=== PATIENT | female | born 1960 | race African-American/Black ===

== ENCOUNTER 2017-07-28 16:13 | Inpatient (IN) | payer OTHER ==
[2017-07-28 17:08] LABS: #Basophils 0.1 thou/uL (0.0-0.2); #Eosinphils 0.1 thou/uL (0.0-0.7); #Monocytes 0.4 thou/uL (0.11-0.59); #Neutrophils 4.3 thou/uL (1.40-6.50); %Basophils 0.9 % (0.0-1.0); %Eosinophils 0.9 % (0.0-10.0); %Monocytes 4.5 % (0.0-10.0); Mean Platelet Volume 9.6 fL (7.4-10.4); Red Blood Cell (RBC) Count 5.63 mill/uL (4.20-5.40); White Blood Cell (WBC) Count 7.8 thou/uL (4.8-10.8)
[2017-07-28 17:20] LABS: PTT 29.3 SEC (22.9-36.1); Prothrombin Time 12.9 SEC (12.0-14.7)
--- NOTE | 2017-07-28 17:21 | ULT ---
VENOUS DOPPLER ULTRASOUND OF THE RIGHT LOWER EXTREMITY: Date: 07/28/17 HISTORY: Shortness of breath, right calf pain. TECHNIQUE: Kc scale ultrasound with color flow and spectral Doppler imaging of the deep venous systems of the right lower extremity was performed. FINDINGS: There is good flow, compression, and augmentation noted in the right common femoral, femoral, deep f emoral, popliteal, posterior tibial, and greater saphenous veins. IMPRESSION: No evidence of deep venous thrombosis in the right lower extremity. POS: [facility]
[2017-07-28 17:32] LABS: ALT (SGPT) 15 U/L (8-55); AST (SGOT) 14 U/L (5-34); Alkaline Phosphatase 68 U/L (40-150); Anion Gap 10 mmol/L (10-20); BUN (Urea Nitrogen) 12 mg/dL (9.8-20.1); Bilirubin, Total 0.7 mg/dL (0.2-1.2); Calc. Creatinine Clearance 0 mL/min (70-130); Calcium 9.7 mg/dL (7.8-10.44); Carbon Dioxide 31 mmol/L (22-29); Chloride 104 mmol/L (98-107); Estimated GFR-MDRD Greater than 90; Globulin 3.8 g/dL (2.4-3.5); Protein, Total 7.6 g/dL (6.0-8.3)
[2017-07-28 17:35] LABS: Lactic Acid - Sepsis 1.5 mmol/L (0.5-2.2)
[2017-07-28 17:36] LABS: Troponin I Less than 0.010 ng/mL (< 0.028)
--- NOTE | 2017-07-28 17:42 | RAD ---
AP VIEW CHEST: 07/28/17 HISTORY: Peripheral vascular disease. Congestive heart failure. Possible right lower extremity DVT. AP view chest is obtained on 07/28/17. COMPARISON: Comparison made to previous exam from 09/13/16. AP view chest demonstrates the lungs to be well aerated. No evidence of active intrathoracic disease seen. No evidence of effusions, pneumonia or pneumothorax seen. IMPRESSION: Unremarkable AP view chest. POS: [facility]
[2017-07-28] MEDS ORDERED: Enoxaparin Sodium 40 MG/0.4 ML SYRINGE ONE (18:47)
[2017-07-28] MEDS ORDERED: Enoxaparin Sodium 100 MG/ML SYRINGE ONE (18:47)
[2017-07-28] MEDS ORDERED: Ondansetron ODT 4 MG TAB SL PRN (20:29)
[2017-07-28] MEDS ORDERED: Ondansetron HCl/PF 4 MG/2 ML Vial IVP PRN (20:29)
[2017-07-28] MEDS ORDERED: Acetaminophen 325 MG TAB PO PRN (20:29)
[2017-07-28] MEDS ORDERED: Lactated Ringer's 1,000 ML IV SCH (20:30)
[2017-07-28] MEDS ORDERED: Dextrose 5% in Water 1,000 ML IV PRN (21:49)
[2017-07-28] MEDS ORDERED: Dextrose 50% Abboject 50 ML SYRINGE SLOW IVP PRN (21:49)
[2017-07-28 21:51] VITALS: BMI 52.2
[2017-07-28] MEDS ORDERED: HYDROcodone/Acetaminophen 5/325 mg Tablet PO PRN (21:58)
[2017-07-28] MEDS ORDERED: DICLOFENAC SODIUM TOP PRN (21:58)
[2017-07-28] MEDS: HYDROcodone/Acetaminophen 5/325 mg Tablet PO PRN (22:23)
[2017-07-28 22:55] LABS: Troponin I Less than 0.010 ng/mL (< 0.028)
[2017-07-29 01:42] LABS: Troponin I Less than 0.010 ng/mL (< 0.028)
[2017-07-29 01:50] LABS: Oxyhemoglobin 85.6 % (94.0-97.0)
[2017-07-29 01:51] LABS: Modified Allen's Test POSITIVE; Sodium 143 mmol/L (135-148); Vent NO
[2017-07-29 01:52] LABS: Mode Nasal Cannula
[2017-07-29 05:35] LABS: #Eosinphils 0.1 thou/uL (0.0-0.7); #Lymphocytes 3.3 thou/uL (1.20-3.40); #Monocytes 0.4 thou/uL (0.11-0.59); #Neutrophils 3.2 thou/uL (1.40-6.50); %Basophils 0.2 % (0.0-1.0); %Eosinophils 1.6 % (0.0-10.0); %Lymphocytes 46.8 % (21.0-51.0); %Monocytes 5.7 % (0.0-10.0); Hematocrit 38.7 % (36.0-47.0); Mean Platelet Volume 9.1 fL (7.4-10.4); Red Blood Cell (RBC) Count 5.14 mill/uL (4.20-5.40)
[2017-07-29 05:52] LABS: Anion Gap 10 mmol/L (10-20); BUN (Urea Nitrogen) 13 mg/dL (9.8-20.1); Calc. Creatinine Clearance 197 mL/min (70-130); Calcium 8.9 mg/dL (7.8-10.44); Carbon Dioxide 27 mmol/L (22-29); Chloride 106 mmol/L (98-107); Estimated GFR-MDRD Greater than 90
[2017-07-29] MEDS: HYDROcodone/Acetaminophen 5/325 mg Tablet PO PRN ×3 (06:23→21:33)
--- NOTE | 2017-07-29 07:02 | ADD-HP ---
DATE OF ADMISSION: 07/28/2017 ATTENDING: Dr. Kareen Manzanares. RESIDENT: Dr. Chadd Soriano. Dr. Soriano's H and P reviewed and the case discussed. Pertinent portions of the history and physica l were repeated by myself. I agree with the assessment and plan with the following addendum: Ms. Felix is a 57-year-old female with a significant past medical history includ ing severe diffuse osteoarthritis, morbid obesity, insulin-dependent type 2 diabetes, hypertension, hyperlipidemia, and obstructive sleep apnea, who presented today with severe left leg pain and short ness of breath. She uses 5 liters of O2 at home chronically and is currently not hypoxic on her billy e dose. She was admitted to rule out DVT and PE versus acute coronary syndrome. She is currently a t Oncology, she notes that her leg continues to hurt, but she does not note any more chest pain and shortness of breath and states that she feels markedly improved. We will transfer her to telemetry given her differential diagnosis. She has had a negative cardiac enzymes x1 and an EKG is unremarka ble. Her vital signs are stable. Ultrasound of her leg did not show a DVT. There is still some co ncern for PE given her mildly elevated D-dimer. We are unable to do a CT scan given her anaphylacti c reaction to contrast allergy, so we will perform a VQ scan in the morning. Her Wells score is 3, giving her a moderate risk of PE with a 3% incidence of PE in patients with similar presentation. S he currently appears stable with no issues. We will hold off on anticoagulation until VQ scan was p erformed.
--- NOTE | 2017-07-29 07:38 | PDOC.FM ---
- Subjective Subjective: Patient doing well this morning with no adverse events overnight. She denies shortness of breath at rest. She still has some dyspnea with exertion. - Objective MAR Reviewed: Yes Vital Signs & Weight: Vital Signs (12 hours) Temp Pulse Resp BP Pulse Ox 07/29/17 03:09 98.6 F 85 20 128/59 L 100 07/29/17 00:05 100 07/28/17 23:55 98.9 F 94 22 H 118/56 L 100 07/28/17 22:52 98.8 F 85 16 144/65 H 98 07/28/17 22:46 98.6 F 88 18 94 L 07/28/17 21:49 100 07/28/17 19:45 98.6 F 88 18 140/80 94 L Weight Weight 137.949 kg Result Diagrams: 07/29/17 05:11 07/29/17 05:11 <Hannah Tuttle - Last Filed: 07/29/17 10:34> - Objective Vital Signs & Weight: Vital Signs (12 hours) Temp Pulse Resp BP Pulse Ox 07/29/17 12:30 97 F L 91 15 140/65 98 07/29/17 12:00 98.4 F 82 22 H 124/58 L 97 Weight Weight 137.949 kg Result Diagrams: 07/29/17 05:11 07/29/17 05:11 <Roddy Moy - Last Filed: 07/29/17 20:22> Phys Exam - Physical Examination Constitutional: NAD Respiratory: no wheezing Cardiovascular: RRR Musculoskeletal: no edema Psychiatric: A&O x 3 Skin: no rash <Hannah Tuttle - Last Filed: 07/29/17 10:34> Dx/Plan (1) Exertional dyspnea Code(s): R06.09 - OTHER FORMS OF DYSPNEA Status: Acute Plan: Pt sent from clinic due to concern for Pulmonary embolism. V/Q scan will be performed to rule out presence of VTE. RLE doppler negative. D-dimer 0.45 If V/Q shows low probability, no further workup for VTE will be warranted. Will consider stress test if V/Q was negative. (2) HTN (hypertension) Code(s): I10 - ESSENTIAL (PRIMARY) HYPERTENSION Status: Acute Plan: BP stable. continue current regimen. (3) DM2 (diabetes mellitus, type 2) Status: Chronic Plan: Fasting BS elevated this morning. Will add sliding scale insulin. Continue to monitor AC/HS accuchecks and consider adjusting pt's home regimen based on insulin requirements. (4) Osteoarthritis Code(s): M19.90 - UNSPECIFIED OSTEOARTHRITIS, UNSPECIFIED SITE Status: Chronic Plan: Continue home pain regimen. (5) Obstructive sleep apnea Code(s): G47.33 - OBSTRUCTIVE SLEEP APNEA (ADULT) (PEDIATRIC) Status: Acute Plan: CPAP at night. <Hannah Tuttle - Last Filed: 07/29/17 10:34> Attending Addendum - Attending Addendum I personally evaluated the patient and discussed the management with Dr. Tuttle this morning. I agree with the History, Examination, Assessment and Plan documented above with any addition or exceptions noted below. VQ was pending this morning. Cardiac workup underway as well. <Roddy Moy - Last Filed: 07/29/17 20:22>
[2017-07-29] MEDS: Aspirin 325 MG TAB PO SCH (08:56)
[2017-07-29] MEDS: Loratadine 10 MG TAB PO SCH (08:57)
[2017-07-29] MEDS: tiZANidine HCl 4 MG TAB PO SCH ×3 (08:57→21:25)
[2017-07-29] MEDS ORDERED: Enoxaparin Sodium 100 MG/ML SYRINGE SC SCH (09:00)
[2017-07-29] MEDS ORDERED: FLU VACC QS2017-18 36 mo. & older 0.5 ML SYRINGE IM ONE (09:00)
--- NOTE | 2017-07-29 10:13 | HP-2 ---
DATE OF ADMISSION: 07/28/2017 LOCATION: [facility]. DATE OF SERVICE: 07/28/2017 CODE STATUS: FULL. PRIMARY CARE PHYSICIAN: [facility]. ATTENDING PHYSICIAN: Kareen Manzanares DO RESIDENT PHYSICIAN: Chadd Soriano DO CHIEF COMPLAINT: Right lower extremity pain, shortness of breath, rapid heart rate/palpitations. HISTORY OF PRESENT ILLNESS: Patient is a 57-year-old female with past medical history of hypertension; hyperlipidemia; morbid obesity; obstructive sleep apnea , on CPAP; and prior right lower extremity DVT, who presented to ED from clinic for concern of increasing dyspnea on exertion over the last 3 days, palpitations and increasing pain in the right lower extremity. The patient describes the pain is radiating from groin and medial aspect of the right knee. Denies claudication, redness, warmth, and swelling outside of her baseline. Right lower extremity pain has been present for months and she received several joint injections in bilateral knees and hips for her osteoarthritis. The lower extremity pain was reproducible and worsened with internal and external rotation of the hip. Patient denies shortness of breath at rest, chest pain, pleuritic chest pain, or diaphoresis. In the ER, the patient was given aspirin and Lovenox. PAST MEDICAL HISTORY: Morbid obesity; type 2 diabetes; hyperlipidemia; hypertension; prior history of DVT; obstructive sleep apnea, on CPAP; and osteoarthritis. PAST SURGICAL HISTORY: Hysterectomy, cholecystectomy, and partial bowel resection. ALLERGIES: 1. ZOFRAN. 2. MORPHINE. 3. IBUPROFEN. 4. BACTRIM with angioedema as reaction. 5. IODINE. MEDICATIONS: 1. [place] 5/325. 2. Diclofenac gel. 3. Simvastatin 40 mg daily. 4. Cetirizine 10 mg daily. 5. Humulin 70/30, 17 units every morning, 22 units every night. 6. Protonix 40 mg daily. 7. Benazepril 20 mg daily. 8. Metformin 1000 mg b.i.d. 9. Glipizide 10 mg b.i.d. FAMILY HISTORY: Positive for maternal breast cancer, paternal colon cancer, paternal hypertension as well as paternal AK. SOCIAL HISTORY: The patient is 2-pack per day smoker with a 26-atth-spzj history and quit smoking cigarettes approximately 10 years ago; however, has been chewing tobacco since then approximately 2 cans per week. Patient is a social drinker. Denies drug use. REVIEW OF SYSTEMS: General: Patient complains of fever and fatigue. Denies chills, weight changes and appetite changes, and night sweats. Eye: The patient denies vision changes. ENT: The patient denies nasal congestion, rhinorrhea, or sore throat. Respiratory: The patient complains of shortness of breath. Denies cough or congestion. Cardiovascular: The patient complains of edema and palpitations, dyspnea on exertion. Denies chest pain. Gastrointestinal: The patient denies nausea, vomiting, diarrhea, or constipation. Musculoskeletal: The patient complains of pain and arthritis. Denies tenderness to palpation. PHYSICAL EXAMINATION: VITAL SIGNS: Patient's blood pressure is 130/77, pulse 91, respirations 16, T- max 98.5, pulse ox 95% on room air. Patient's current weight is 139 kilograms. GENERAL: The patient is alert and oriented, in no acute distress, morbidly obese, appropriately interactive. HEENT: Pupils equal, round, react to light with accommodation. Extraocular muscles are intact. Conjunctivae within normal limits. CARDIAC: Regular rate and rhythm. No murmurs, rubs, or gallops. Radial pulses 2+, pedal pulses 2+. RESPIRATORY: Normal effort. Clear to auscultation bilaterally. No retractions. No paradoxical breathing. SKIN: Warm and dry. No cyanosis. ABDOMEN: Soft, nontender. Normoactive bowel sounds in all 4 quadrants. No masses or distention. EXTREMITIES: No clubbing, no cyanosis. Patient had bilateral lower extremity, 2+ pitting edema. MUSCULOSKELETAL: Structures are within normal limits. Tone within normal limits. NEUROLOGIC: No focal deficits. Sensation within normal limits. GCS 15. LABORATORY DATA: White blood cell count 7.8, hemoglobin 13.1, hematocrit 43, platelets 217. Sodium 141, potassium 3.8, chloride 104, bicarbonate 31, BUN 12 , creatinine 0.72, glucose 105, calcium 9.7, total protein 7.6, albumin 3.8, AST 14, ALT 15, alkaline phosphatase 68, total bilirubin 0.7, PT 12.9, PTT 29.3 , INR 1.0. D-dimer 0.45, troponin less than 0.010. CK 73, CK-MB 0.8. BNP less than 10. IMAGING: EKG showed normal sinus rhythm, no ST changes or T-wave changes. Chest x-ray was unremarkable. Right lower extremity venous Doppler showed no evidence of DVT in the right lower extremity. ASSESSMENT AND PLAN: 1. Exertional shortness of breath secondary to pulmonary embolism versus pickwickian versus chronic hypoxic respiratory failure. D-dimer 0.45, Well's score 4.5, we will order ABG, VQ scan and patient will be started on therapeutic Lovenox at 1 mg/kg b.i.d. Check troponins with cardiac enzymes x3. The patient will be admitted for observation to telemetry. 2. Hypertension. The patient will be restarted on home medications. 3. Type 2 diabetes. The patient will be continued on home medications. Accu- Cheks q.a.c. and at bedtime. 4. Osteoarthritis. Patient will be continued on home medications. 5. Obstructive sleep apnea. Patient will be continued on CPAP at bedtime and will maintain sats above 88%. 6. Hyperlipidemia. We will resume home medications. DISPOSITION AND LENGTH OF STAY: Patient is stable. Expected length of stay greater than or equal to 3 days. Symptomatic medication will be provided. History and physical exam as well as management were discussed with Dr. Kareen Manzanares, who agrees with the above, unless otherwise documented in her addendum. MAXX
--- NOTE | 2017-07-29 10:31 | PQF ---
MARBELLA RUIZ JESSICA C *r [id number] CLINICAL DOCUMENTATION IMPROVEMENT CLARIFICATION FORM: ICD-10 Updated PLEASE DO AN ADDENDUM TO THE PROGRESS NOTE WITH ANY DOCUMENTATION UPDATES OR ADDITIONS AND CARRY THROUGH TO DC SUMMARY. THANK YOU. DATE: 07-29-17 ATTN: DR. ALAN ZAMORA / DR. ANALY KILPATRICK ([employer]) Please exercise your independent, professional judgment in responding to the clarification form. Clinical indicators are provided on the bottom of this form for your review Please check appropriate box(s): [ ] Chronic Respiratory Failure only [ ] with Hypoxia [ ] with Hypercapnia [ ] Hypoxia [ ] Other diagnosis [ ] Unable to determine In addition, please specify: Present on Admission (POA): [ ] Yes [ ] No [ ] Unable to determine For continuity of documentation, please document condition throughout progress notes and discharge summary. Thank You. CLINICAL INDICATORS - SIGNS / SYMPTOMS / LABS H&P ADD: USES 5 LITERS OF 02 AT HOME CHRONICALLY AND IS CURRENTLY NOT HYPOXIC ON HER HOME DOSE 07-28 @ 1945 O2 SAT 94% ON 3LNC 07-29 ARTERIAL BLOOD GAS: ABG pO2 53.7 RISK FACTORS H&P ADD: History of home O2 use HX OF Tobacco abuse CONCERN FOR PE GIVEN ELEVATED D-DIMER TREATMENTS: CPOE: TELE MONITORING NM LUNG VENT &PERFUSION OXYGEN 3LNC THANK YOU, EMMY (This form is maintained as a part of the permanent medical record) 2014 [employer]. All Rights Reserved Emmy Fair RN, BS [email or web address] Cell [facility]
[2017-07-29] MEDS ORDERED: HumaLOG 300 UNITS/3 ML VIAL SC PRN (10:42)
[2017-07-29] MEDS: Enoxaparin Sodium 40 MG/0.4 ML SYRINGE SC SCH ×2 (11:13→21:27)
[2017-07-29] MEDS: metFORMIN 500 MG TAB PO SCH ×2 (11:38→17:33)
[2017-07-29] MEDS: Insulin NPH/Reg Insulin Hm 300 UNITS/3 ML VIAL SC SCH ×2 (12:04→17:33)
--- NOTE | 2017-07-29 13:14 | NM ---
VQ SCAN: Date: 07/29/17 HISTORY: Shortness of breath and tachycardia. TECHNIQUE: A ventilation perfusion scan was performed using 16 mCi Xenon-133 by inhalation for the ventilation study followed by the intravenous administration of 6 mCi technetium-99m MAA for the perfusion scan. FINDINGS: Correlation is made with the chest radiograph from previous evening. Homogeneous tracer distribution is seen on the lungs on the ventilation perfusion scans without mism atched defects. IMPRESSION: Normal exam. POS: [facility]
[2017-07-29] MEDS: Atorvastatin Calcium 20 MG TAB PO SCH (21:25)
--- NOTE | 2017-07-30 06:31 | PDOC.FM ---
- Subjective Subjective: Pt doing well this morning. She still is experiencing exertional dyspnea. No adverse events overnight. - Objective MAR Reviewed: Yes Vital Signs & Weight: Vital Signs (12 hours) Temp Pulse Resp BP Pulse Ox 07/30/17 04:00 97 07/30/17 03:59 98.4 F 92 16 125/58 L 97 07/30/17 00:00 95 07/29/17 23:47 98.4 F 83 18 119/55 L 98 07/29/17 20:00 97.6 F 80 20 130/59 L 97 Weight Weight 138.845 kg I&O: 07/28/17 07/29/17 07/30/17 06:59 06:59 06:59 Intake Total 720 Output Total 680 Balance 40 Result Diagrams: 07/29/17 05:11 07/29/17 05:11 <Hannah Tuttle - Last Filed: 07/30/17 09:41> - Objective Vital Signs & Weight: Vital Signs (12 hours) Temp Pulse Resp BP BP Pulse Ox 07/30/17 07:58 122/70 07/30/17 07:56 98.7 F 80 18 122/70 100 07/30/17 04:00 97 07/30/17 03:59 98.4 F 92 16 125/58 L 97 07/30/17 00:00 95 07/29/17 23:47 98.4 F 83 18 119/55 L 98 Weight Weight 138.845 kg I&O: 07/29/17 07/30/17 07/31/17 06:59 06:59 06:59 Intake Total 720 Output Total 680 Balance 40 Result Diagrams: 07/29/17 05:11 07/29/17 05:11 <Anna Melendez - Last Filed: 07/30/17 10:13> Phys Exam - Physical Examination Constitutional: NAD Respiratory: clear to auscultation bilateral Cardiovascular: RRR Gastrointestinal: soft, non-tender Psychiatric: A&O x 3 <Hannah Tuttle - Last Filed: 07/30/17 09:41> Dx/Plan (1) Exertional dyspnea Code(s): R06.09 - OTHER FORMS OF DYSPNEA Status: Chronic Plan: Likely secondary to pt body habitus. VTE workup negative. Echo shows normal EF, no structural abnormalities. Will rule out ACS with Stress test and dc if normal. (2) HTN (hypertension) Code(s): I10 - ESSENTIAL (PRIMARY) HYPERTENSION Status: Acute Plan: BP stable. continue current regimen. (3) DM2 (diabetes mellitus, type 2) Status: Chronic Plan: Fasting BS wnl this am. Continue current regimen. (4) Osteoarthritis Code(s): M19.90 - UNSPECIFIED OSTEOARTHRITIS, UNSPECIFIED SITE Status: Chronic Plan: Continue home pain regimen. (5) Obstructive sleep apnea Code(s): G47.33 - OBSTRUCTIVE SLEEP APNEA (ADULT) (PEDIATRIC) Status: Acute Plan: CPAP at night. <Hannah Tuttle - Last Filed: 07/30/17 09:41> Attending Addendum - Attending Addendum I personally evaluated the patient and discussed the management with Dr. Tuttle. I agree with the History, Examination, Assessment and Plan documented above with any addition or exceptions noted below. The patient is feeling better this morning. She notes mild dyspnea when ambulating to the restroom. This may be 2/2 deconditioning. She will have a stress test this morning and if negative will likely be discharged. <Anna Melendez - Last Filed: 07/30/17 10:13>
[2017-07-30] MEDS: tiZANidine HCl 4 MG TAB PO SCH ×4 (07:58→21:24)
[2017-07-30] MEDS: Enoxaparin Sodium 40 MG/0.4 ML SYRINGE SC SCH ×2 (07:59→21:25)
[2017-07-30] MEDS: Loratadine 10 MG TAB PO SCH (07:59)
[2017-07-30] MEDS: metFORMIN 500 MG TAB PO SCH ×2 (11:54→18:16)
[2017-07-30] MEDS: Aspirin 325 MG TAB PO SCH (11:55)
[2017-07-30] MEDS: Insulin NPH/Reg Insulin Hm 300 UNITS/3 ML VIAL SC SCH ×2 (11:56→18:17)
[2017-07-30] MEDS: HYDROcodone/Acetaminophen 5/325 mg Tablet PO PRN ×2 (12:03→19:24)
[2017-07-30] MEDS ORDERED: Docusate 100 MG CAP PO PRN (17:22)
[2017-07-30] MEDS ORDERED: Polyethylene Glycol 3350 17 GM Packet PO PRN (17:22)
[2017-07-30] MEDS: Atorvastatin Calcium 20 MG TAB PO SCH (21:24)
--- NOTE | 2017-07-31 06:06 | PDOC.FM ---
- Subjective Subjective: Pt doing well this morning. She states that her exertional dyspnea has improved compared to admission. - Objective MAR Reviewed: Yes Vital Signs & Weight: Vital Signs (12 hours) Temp Pulse Resp BP BP Pulse Ox 07/31/17 04:00 97.9 F 88 20 132/60 98 07/31/17 00:00 97.8 F 89 20 148/65 H 96 07/30/17 20:03 98.2 F 85 18 112/75 96 07/30/17 20:00 98.2 F 85 18 96 Weight Weight 140.16 kg I&O: 07/29/17 07/30/17 07/31/17 06:59 06:59 06:59 Intake Total 720 680 Output Total 680 820 Balance 40 -140 Result Diagrams: 07/29/17 05:11 07/31/17 06:14 <Hannah Tuttle - Last Filed: 07/31/17 09:03> - Objective Vital Signs & Weight: Vital Signs (12 hours) Temp Pulse Resp BP Pulse Ox 07/31/17 07:45 98.3 F 95 16 119/58 L 96 07/31/17 04:00 97.9 F 88 20 132/60 98 07/31/17 00:00 97.8 F 89 20 148/65 H 96 Weight Weight 140.16 kg I&O: 07/30/17 07/31/17 08/01/17 06:59 06:59 06:59 Intake Total 720 680 Output Total 680 820 200 Balance 40 -140 -200 Result Diagrams: 07/29/17 05:11 07/31/17 06:14 <Anna Melendez - Last Filed: 07/31/17 09:21> Phys Exam - Physical Examination Respiratory: clear to auscultation bilateral Cardiovascular: RRR Gastrointestinal: soft, non-tender Musculoskeletal: no edema Psychiatric: A&O x 3 <Hannah Tuttle - Last Filed: 07/31/17 09:03> Dx/Plan (1) Exertional dyspnea Code(s): R06.09 - OTHER FORMS OF DYSPNEA Status: Chronic Plan: Likely secondary to pt body habitus. VTE workup negative. Stress test postponed until this am due to recent dye administration. (2) HTN (hypertension) Code(s): I10 - ESSENTIAL (PRIMARY) HYPERTENSION Status: Chronic Plan: BP stable. continue current regimen. (3) DM2 (diabetes mellitus, type 2) Status: Chronic Plan: Fasting blood sugars. and postprandial blood sugars wnl this am. Continue current regimen. (4) Osteoarthritis Code(s): M19.90 - UNSPECIFIED OSTEOARTHRITIS, UNSPECIFIED SITE Status: Chronic Plan: Continue home pain regimen. (5) Obstructive sleep apnea Code(s): G47.33 - OBSTRUCTIVE SLEEP APNEA (ADULT) (PEDIATRIC) Status: Acute Plan: CPAP at night. - Plan Plan: Disposition: stable. d/c today if stress test is normal. <Hannah Tuttle - Last Filed: 07/31/17 09:03> Attending Addendum - Attending Addendum I personally evaluated the patient and discussed the management with Dr. Tuttle. I agree with the History, Examination, Assessment and Plan documented above with any addition or exceptions noted below. The patient was unable to get stress test yesterday due to contrast. will have stress test today and if negative will discharge. Patient's dyspnea is improved. <Anna Melendez - Last Filed: 07/31/17 09:21>
[2017-07-31 06:38] LABS: Calc. Creatinine Clearance 191 mL/min (70-130); Estimated GFR-MDRD Greater than 90
[2017-07-31] MEDS: Aspirin 325 MG TAB PO SCH (11:02)
[2017-07-31] MEDS: metFORMIN 500 MG TAB PO SCH ×2 (11:03→16:28)
[2017-07-31] MEDS: Loratadine 10 MG TAB PO SCH (11:03)
[2017-07-31] MEDS: Enoxaparin Sodium 40 MG/0.4 ML SYRINGE SC SCH (11:04)
[2017-07-31] MEDS: tiZANidine HCl 4 MG TAB PO SCH ×2 (11:04→15:35)
[2017-07-31] MEDS: Insulin NPH/Reg Insulin Hm 300 UNITS/3 ML VIAL SC SCH (11:10)
[2017-07-31] MEDS: HYDROcodone/Acetaminophen 5/325 mg Tablet PO PRN (11:11)
--- NOTE | 2017-07-31 11:25 | NM ---
NUCLEAR MEDICINE STRESS ONLY: HISTORY: Dyspnea on exertion. COMPARISON: 06/19/15. TECHNIQUE: The patient was administered 32 mCi of technetium-99m sestamibi for stress imaging. Cardiac gating i s performed. FINDINGS: Homogeneous distribution of the radiotracer. There are no defects. End-diastolic volume is 83 ml. End-systolic volume is 28 ml. CARDIAC GATING: Normal motion and contractility. Ejection fraction is 66%. IMPRESSION: 1. Homogeneous distribution of radiotracer in left ventricle. 2. Ejection fraction is 66%. POS: [facility]
[2017-07-31] MEDS ORDERED: Regadenoson 0.4 MG/5 ML SYRINGE ONE (15:51)
[2017-07-31 16:47] VITALS: BP 125/61; TEMP 97.9
--- NOTE | 2017-08-01 14:44 | DIS-2 ---
DATE OF ADMISSION: 07/28/2017 DATE OF DISCHARGE: 07/31/2017 ADMITTING ATTENDING: Kareen Manzanares D.O. DISCHARGE ATTENDING: Anna Melendez M.D. RESIDENT: Hannah Tuttle M.D.,PGY-2. CONSULTS: None. PROCEDURES: 1. Right lower extremity Doppler that showed no evidence of deep venous thrombosis in the right low er extremity. 2. Nuclear medicine VQ scan that showed homogeneous tracer distribution in the lung on ventilation perfusion scans without mismatch defects. 3. Echocardiogram that showed normal left ventricular size, ejection fraction of 55%-60%, left atri um normal size, normal mitral and aortic valves, trace tricuspid regurgitation, normal pulmonary art deidra pressure. 4. Nuclear medicine stress test that showed homogeneous distribution of the radiotracer in the left ventricle, ejection fraction of 66%. PRIMARY DIAGNOSIS: Exertional dyspnea. SECONDARY DIAGNOSES: 1. Hypertension. 2. Diabetes mellitus type 2. 3. Osteoarthritis. 4. Obstructive sleep apnea. DISCHARGE MEDICATIONS: 1. Promethazine 25 mg p.o. t.i.d. 2. Benazepril 20 mg p.o. daily. 3. Tizanidine 4 mg p.o. t.i.d. 4. Metformin 1000 mg p.o. b.i.d. with meals. 5. Humulin 70/30, 22 units subcutaneously every evening. 6. Humulin 70/30, 17 units q.a.m. 7. Protonix 40 mg p.o. daily. 8. Glipizide 10 mg p.o. b.i.d. 9. [place] 5/325 mg 1 tab p.o. q.6 hours p.r.n. 10. Diclofenac 1% gel 2 grams topically q.i.d. p.r.n. 11. Cetirizine 10 mg p.o. daily. 12. Simvastatin 40 mg p.o. at bedtime. 13. Vitamin D3 50,000 units p.o. DISCONTINUED MEDICATIONS: None. HOSPITAL COURSE: The patient is a 57-year-old -[place] female who presented to the primary care provider's office with severe right leg pain and dyspnea. She was admitted due to concern for DVT and PE. Right lower extremity DVT was effectively ruled out with Doppler ultrasound, VQ scan wa s performed that did not show any evidence of PE. Nuclear medicine stress test was also performed t o rule out acute coronary syndrome and this was also negative as well. Likely causes of exert ional dyspnea were essentially ruled out and the patient's exertional dyspnea is therefore likely re lated to body habitus. The patient did state that her dyspnea did improve by the time of discharge and expressed desire to return home. She is discharged in stable condition. DISPOSITION: Stable. DISCHARGE INSTRUCTIONS: 1. Location: Home. 2. Activity: ad sebastian. 3. Diet: Heart healthy/consistent carbohydrates. 4. Followup: The patient is to follow up with her primary care provider in 3 days.
[2017-08-03] MEDS ORDERED: Ergocalciferol 1.25 MG(50,000 UNITS) CAP PO SCH (09:00)
--- NOTE | 2017-08-06 15:57 | EKG ---
Test Reason : Blood Pressure : / mmHG Vent. Rate : 093 BPM Atrial Rate : 093 BPM P-R Int : 158 ms QRS Dur : 078 ms QT Int : 378 ms P-R-T Axes : 063 -27 026 degrees QTc Int : 469 ms Normal sinus rhythm Low voltage QRS Nonspecific T wave abnormality Prolonged QT Abnormal ECG Confirmed by BRIAN DUNAWAY, OBI ([id number]), department editor VITOR LUIS ([id number]) on 08/06/2017 3:57:15 PM Referred By: BLAS Confirmed By:OBI TORRES MD
== END 2017-07-31 18:20 | disposition home or self-care (01) | DRG 204 ==
LOC: ERS 16:13 → ONC 17:56 → 2NO 23:50
PROVIDERS: ADMIT Family Medicine; ATTEND Family Medicine
PROC: 4A02XM4 Measurement of Cardiac Total Activity, External Approach (ICD-10-PCS; principal; 2017-07-31)
DX: R06.09 Other forms of dyspnea (principal); Z68.43 Body mass index [BMI] 50.0-59.9, adult; I10 Essential (primary) hypertension; E66.01 Morbid (severe) obesity due to excess calories; E11.9 Type 2 diabetes mellitus without complications; E78.5 Hyperlipidemia, unspecified; G47.33 Obstructive sleep apnea (adult) (pediatric); M19.90 Unspecified osteoarthritis, unspecified site; F17.210 Nicotine dependence, cigarettes, uncomplicated; Z86.718 Personal history of other venous thrombosis and embolism; Z79.4 Long term (current) use of insulin; Z88.1 Allergy status to other antibiotic agents; Z88.5 Allergy status to narcotic agent; Z88.8 Allergy status to other drugs, medicaments and biological substances; Z82.49 Family history of ischemic heart disease and other diseases of the circulatory system; Z80.3 Family history of malignant neoplasm of breast; Z80.0 Family history of malignant neoplasm of digestive organs
CPT/HCPCS: 36415; 36416; 71010; 78452; 78582; 80048; 80053; 82553; 82565; 82805; 83605; 83690; 83880; 84484; 85025; 85379; 85610; 85730; 90471; 90682; 90732; 93005; 93017; 93306; 94760; 96360; 96372; A9500; A9540; A9558; G0008; G0009; J1650; J2785; Q2036

== ENCOUNTER 2018-04-06 14:23 | Outpatient (CLI) | payer OTHER | END 2018-04-06 14:24 | disposition home or self-care (01) | LOC: BICMAMMO 14:23 | PROVIDERS: ATTEND Family Medicine | DX: Z12.31 Encounter for screening mammogram for malignant neoplasm of breast (principal); Z80.3 Family history of malignant neoplasm of breast | CPT/HCPCS: 77067 ==

== ENCOUNTER 2018-06-01 13:16 | Outpatient (CLI) | payer OTHER | END 2018-06-01 13:17 | disposition home or self-care (01) | LOC: BICULT 13:16 | PROVIDERS: ATTEND Family Medicine | DX: E04.1 Nontoxic single thyroid nodule (principal) | CPT/HCPCS: 76536 ==

== ENCOUNTER 2019-10-16 19:30 | Outpatient (CLI) | payer OTHER | END 2019-10-16 19:31 | disposition home or self-care (01) | LOC: SLEEPLAB 19:30 | PROVIDERS: ATTEND Family Medicine | DX: G47.33 Obstructive sleep apnea (adult) (pediatric) (principal); R53.83 Other fatigue; E66.9 Obesity, unspecified; I10 Essential (primary) hypertension; E11.9 Type 2 diabetes mellitus without complications; R09.02 Hypoxemia | CPT/HCPCS: 95810 ==

== ENCOUNTER 2019-11-21 11:06 | Observation (INO) | payer OTHER ==
[2019-11-21 11:37] LABS: #Eosinphils 0.1 thou/uL (0.0-0.7); #Lymphocytes 3.5 thou/uL (1.20-3.40); #Monocytes 0.4 thou/uL (0.11-0.59); #Neutrophils 4.1 thou/uL (1.40-6.50); %Basophils 0.5 % (0.0-1.0); %Eosinophils 1.1 % (0.0-10.0); %Monocytes 5.2 % (0.0-10.0); %Neutrophils 50.1 % (42.0-75.0); Hemoglobin 13.5 g/dL (12.0-16.0); Mean Corpuscular HGB CONC 31.3 g/dL (32.0-36.0); Mean Corpuscular Volume 76.4 fL (78.0-98.0); Mean Platelet Volume 9.5 fL (7.4-10.4); Platelet Count 225 thou/uL (130-400); Red Blood Cell (RBC) Count 5.63 mill/uL (4.20-5.40); White Blood Cell (WBC) Count 8.1 thou/uL (4.8-10.8)
[2019-11-21] MEDS ORDERED: diphenhydrAMINE 50 MG/ML VIAL ONE (11:39)
[2019-11-21] MEDS ORDERED: Famotidine/PF 20 mg/2ml Vial ONE (11:39)
[2019-11-21] MEDS ORDERED: methylPREDNISolone Sod Succ/PF 125 MG/2 ML VIAL ONE (11:39)
--- NOTE | 2019-11-21 11:59 | RAD ---
PORTABLE CHEST: Date: 11/21/2019 HISTORY: Chest pain. COMPARISON: 07/28/17 exam. FINDINGS: Heart size appears slightly enlarged, but this may just be related to the lordotic technique. Soft ti ssue degrades detail. It is difficult to assess the left lower lobe. There are no signs of failure. IMPRESSION: Suggestion of some mild cardiomegaly. Increased density in the left base is felt most likely to be re lated to overlying soft tissue. POS: [facility]
[2019-11-21 12:03] LABS: ALT (SGPT) 11 U/L (8-55); AST (SGOT) 11 U/L (5-34); Albumin 3.8 g/dL (3.4-4.8); Alkaline Phosphatase 62 U/L (40-110); Anion Gap 14 mmol/L (10-20); BUN (Urea Nitrogen) 10 mg/dL (9.8-20.1); Bilirubin, Total 0.6 mg/dL (0.2-1.2); CK (CPK) 61 U/L (29-168); Calc. Creatinine Clearance 0 mL/min (70-130); Calcium 9.6 mg/dL (7.8-10.44); Carbon Dioxide 26 mmol/L (23-31); Chloride 105 mmol/L (98-107); Estimated GFR-MDRD Greater than 90; Globulin 3.6 g/dL (2.4-3.5); Glucose 159 mg/dL (80-115); Lipase 29 U/L (8-78); Potassium 3.5 mmol/L (3.5-5.1); Protein, Total 7.4 g/dL (6.0-8.3); Sodium 141 mmol/L (136-145)
[2019-11-21] MEDS ORDERED: Aspirin Chewable 81 MG TAB ONE (13:33)
--- NOTE | 2019-11-21 13:57 | PDOC.FPRHP ---
- History of Present Illness Chief Complaint: chest pain History of Present Illness: Mrs. Felix presents with chest pain and tremor for the past 4 days she reports 4 days ago she was taken off of her [place] by her PCP and since that time she reports headache, shortness of breath, and tremors. she reports never having these kind of symptoms before. in the distant past she has had to stay in a hospital for 3 weeks with a blood clot in her leg. she is currently not taking any blood thinners, denies any cardiovascular disease diagnosis. taking her other medications as prescribed. hx of anxiety. ED Course: asa, famotidine, methylpred, benadryl - Allergies/Adverse Reactions Allergies Allergy/AdvReac Type Severity Reaction Status Date / Time ibuprofen Allergy Verified 05/31/17 10:46 iodine Allergy Verified 05/31/17 10:46 morphine Allergy Verified 05/31/17 10:46 ondansetron HCl Allergy Verified 05/31/17 10:46 [From Zofran (as hydrochloride)] sulfamethoxazole Allergy Verified 05/31/17 10:46 [From Bactrim] trimethoprim [From Bactrim] Allergy Verified 05/31/17 10:46 - Home Medications Medication Instructions Recorded Confirmed Type Benazepril HCl 20 mg PO DAILY 06/18/15 07/28/17 History Promethazine [Phenergan] 25 mg PO TID 06/18/15 07/28/17 History tiZANidine HCl [Zanaflex] 4 mg PO TID 06/18/15 07/28/17 History metFORMIN [Glucophage] 1,000 mg PO BID-WM #0 tab 06/19/15 07/28/17 Rx HumuLIN 70/30 [HumuLIN 70/30 Vial] 17 unit SC QAM 09/13/16 07/28/17 History HumuLIN 70/30 [HumuLIN 70/30 Vial] 22 unit SC 1800 09/13/16 07/28/17 History Pantoprazole [Protonix] 40 mg PO DAILY 09/13/16 07/28/17 History glipiZIDE [Glucotrol XL] 10 mg PO BID 09/13/16 07/28/17 History Cetirizine HCl [Zyrtec] 10 mg PO DAILY 05/31/17 07/28/17 History Cholecalciferol (Vitamin D3) 50,000 unit PO ASDIR 05/31/17 07/28/17 History [Vitamin D3] Diclofenac Sodium [Diclofenac 2 gm TOP QID PRN 05/31/17 07/28/17 History Sodium 1% Gel] HYDROcodone Bit/APAP 5/325 [[place]] 1 tab PO Q6HR PRN 05/31/17 07/28/17 History Simvastatin 1 tab PO HS 05/31/17 07/28/17 History - History PMHx:HTN, IDDM, HLD, GERD, Chronic pain, anxiety/depression, morbid obesity PSHx: none FHx: heart failure Social:dips snuff, denies alcohol or drugs - Review of Systems General: denies: fever/chills, weight/appetite/sleep changes Eyes: denies: vision changes ENT: denies: nasal congestion Respiratory: reports: shortness of breath. denies: cough, congestion Cardiovascular: reports: chest pain, palpitation, edema Gastrointestinal: reports: nausea. denies: vomiting, diarrhea, constipation Genitourinary: denies: dysuria Skin: denies: rashes Musculoskeletal: reports: pain, tenderness Neurological: denies: numbness, syncope Psychological: reports: anxiety. denies: depression - Vital signs 147/70, Pulse: 108, Temp: 98.5 (Oral), Pain: 9, O2 sat: 94 on (Room Air - Physical Exam Constitutional: NAD HEENT: normocephalic and atraumatic, grossly normal vision, grossly normal hearing, MMM Neck: trachea midline Chest: other (tender to palpation) Heart: RRR, normal S1/S2 Lungs: CTAB, no respiratory distress Abdomen: soft, other (tender over epigastrum) Musculoskeletal: normal structure, normal tone Neurological: no focal deficit, CN II-XII intact Skin: no rash/lesions Heme/Lymphatic: no unusual bruising or bleeding Psychiatric: normal mood and affect FMR H&P: Results - Labs Result Diagrams: 11/21/19 11:20 11/21/19 11:20 Lab results: WBC 8.1 thou/uL (4.8-10.8) 11/21/19 11:20 Hgb 13.5 g/dL (12.0-16.0) 11/21/19 11:20 Hct 43.0 % (36.0-47.0) 11/21/19 11:20 MCV 76.4 fL (78.0-98.0) L 11/21/19 11:20 Plt Count 225 thou/uL (130-400) 11/21/19 11:20 Neutrophils % 50.1 % (42.0-75.0) 11/21/19 11:20 Sodium 141 mmol/L (136-145) 11/21/19 11:20 Potassium 3.5 mmol/L (3.5-5.1) 11/21/19 11:20 Chloride 105 mmol/L (98-107) 11/21/19 11:20 Carbon Dioxide 26 mmol/L (23-31) 11/21/19 11:20 BUN 10 mg/dL (9.8-20.1) 11/21/19 11:20 Creatinine 0.75 mg/dL (0.6-1.1) 11/21/19 11:20 Glucose 159 mg/dL (80-115) H 11/21/19 11:20 Calcium 9.6 mg/dL (7.8-10.44) 11/21/19 11:20 Total Bilirubin 0.6 mg/dL (0.2-1.2) 11/21/19 11:20 AST 11 U/L (5-34) 11/21/19 11:20 ALT 11 U/L (8-55) 11/21/19 11:20 Alkaline Phosphatase 62 U/L (40-110) 11/21/19 11:20 Creatine Kinase 61 U/L (29-168) 11/21/19 11:20 Serum Total Protein 7.4 g/dL (6.0-8.3) 11/21/19 11:20 Albumin 3.8 g/dL (3.4-4.8) 11/21/19 11:20 Lipase 29 U/L (8-78) 11/21/19 11:20 FMR H&P: A/P - Problem List (1) Chest pain, rule out acute myocardial infarction Current Visit: No Status: Acute Code(s): R07.9 - CHEST PAIN, UNSPECIFIED (2) Morbid obesity with BMI of 45.0-49.9, adult Current Visit: No Status: Acute Code(s): E66.01 - MORBID (SEVERE) OBESITY DUE TO EXCESS CALORIES; Z68.42 - BODY MASS INDEX (BMI) 45.0-49.9, ADULT (3) Obstructive sleep apnea Current Visit: No Status: Acute Code(s): G47.33 - OBSTRUCTIVE SLEEP APNEA ( ADULT) (PEDIATRIC) (4) DM2 (diabetes mellitus, type 2) Current Visit: No Status: Chronic (5) HLD (hyperlipidemia) Current Visit: No Status: Chronic Code(s): E78.5 - HYPERLIPIDEMIA, UNSPECIFIED (6) HTN (hypertension) Current Visit: No Status: Chronic Code(s): I10 - ESSENTIAL (PRIMARY) HYPERTENSION (7) Osteoarthritis Current Visit: No Status: Chronic Code(s): M19.90 - UNSPECIFIED OSTEOARTHRITIS, UNSPECIFIED SITE - Plan atypical chest pain - reproducible chest pain, ekg wnl, trop negx1 - EKG/nitro for repeat chest pain - stress in AM - risk stratification elevated D-dimer - hx of blood clot, normal rate, no O2 requirement - CTA pending Anxiety/depression - likely contributing to presentation - continue home meds HTN - stable, continue home meds HLD - FLP in AM - continue home meds IDDM - continue home meds - mod SSI, achs accuchecks GERD - continue home meds morbid obesity/hypoventilation/lily - CPAP at night chronic opioid misuse - recently flagged on [employer], misuse documented in clinic - no controlled substances code: full ppx: lovenox dispo: admit to tele obs for further eval/treatment LOS<48hrs, stress/CTA pending further dispo FMR H&P: Upper Level - Plan Date/Time: 11/21/19 1355 I, [], have evaluated this patient and agree with findings/plan as outlined by geotechnical intern resident. Pertinent changes/additions are listed here. Addendum - Attending - Attending Attestation Date/Time: 11/21/19 1611 I personally evaluated the patient and discussed the management with Dr. Wasserman I agree with the History, Examination, Assessment and Plan documented above with any addition or exceptions noted below. 59 yo AAF PMH obesity, HTN, HLD, and chronic pain. Presents with CC of substernal chest pain and SOB that started at 0200 today. Hx unprovoked DVT several years ago. States a doctor told her she was at increased risk for clots. Still occurring during exam. states PCP recently stopped rx opiates due to nocturnal hypoxia into 80s and she ran out of her norco 5 days ago. C/O palpitations, tremor, and insomnia. Exam unermarkable. Labs unremarkable except for elevated D-dimer. EKG sinus tach with normal intervals and no ST changes. CXR negative. Obs for ACS r/o. CTA to r/o PE. NM stress tomorrow. Suspect this is related to withdrawal sx but has multiple risk factors and no recent cardiac evaluation. Obs, tele, <2 midnights.
[2019-11-21] MEDS ORDERED: Nitroglycerin 0.4 MG TAB (25 Tab Bottle) PO PRN (14:25)
[2019-11-21] MEDS ORDERED: Acetaminophen 650 MG Suppository PR PRN (14:25)
[2019-11-21] MEDS ORDERED: Acetaminophen 325 MG TAB PO PRN (14:25)
[2019-11-21 14:39] LABS: Troponin I Less than 0.010 ng/mL (< 0.028)
[2019-11-21] MEDS ORDERED: Dextrose 5% in Water 1,000 ML IV PRN (15:24)
[2019-11-21] MEDS ORDERED: Dextrose 50% Abboject 50 ML SYRINGE SLOW IVP PRN (15:24)
[2019-11-21] MEDS ORDERED: HumaLOG 300 UNITS/3 ML VIAL SC PRN ×2 (15:24)
[2019-11-21] MEDS ORDERED: Promethazine 25 MG TAB PO PRN (15:28)
[2019-11-21 15:46] VITALS: BMI 59.3
[2019-11-21 17:44] LABS: Troponin I Less than 0.010 ng/mL (< 0.028)
[2019-11-21] MEDS ORDERED: HumuLIN 70/30 (300 UNITS/3 ML VIAL) SC SCH (18:00)
[2019-11-21] MEDS: metFORMIN 500 MG TAB PO SCH (18:14)
[2019-11-21] MEDS ORDERED: Melatonin 3 MG TAB PO PRN (18:20)
[2019-11-21] MEDS ORDERED: tiZANidine HCl 4 MG TAB PO PRN (18:20)
[2019-11-21] MEDS ORDERED: predniSONE 50 MG TAB PO SCH (20:00)
[2019-11-21] MEDS ORDERED: Atorvastatin Calcium 20 MG TAB PO SCH (21:00)
[2019-11-22] MEDS ORDERED: diphenhydrAMINE 12.5 MG/5 ML UDCUP PO SCH (01:00)
[2019-11-22] MEDS ORDERED: diphenhydrAMINE 25 MG CAP PO SCH (01:15)
[2019-11-22] MEDS ORDERED: predniSONE 50 MG TAB PO SCH ×2 (02:00→08:00)
[2019-11-22 05:43] LABS: Cardiac Risk 3.2 (Less than 4.5)
[2019-11-22] MEDS ORDERED: diphenhydrAMINE 50 MG CAP PO SCH (08:00)
--- NOTE | 2019-11-22 08:39 | PDOC.FM ---
- Subjective Subjective: Patient says she has no chest pain this morning. She states she has pain in her knees and back. - Objective MAR Reviewed: Yes Vital Signs & Weight: Vital Signs (12 hours) Temp Pulse Resp BP Pulse Ox 11/22/19 07:26 97.7 F 86 20 167/79 H 95 11/22/19 04:00 98.7 F 103 H 18 155/81 H 96 11/22/19 00:26 98.6 F 96 16 115/68 95 Weight Weight 147.281 kg I&O: 11/21/19 11/22/19 11/23/19 06:59 06:59 06:59 Intake Total 1440 Balance 1440 Result Diagrams: 11/21/19 11:20 11/21/19 11:20 EKG Reviewed by me: Yes (Sinus rhythm 80-100s ) Phys Exam - Physical Examination Constitutional: NAD HEENT: moist MMs, oral pharynx no lesions Neck: no nodes, supple Respiratory: no wheezing, no rales, no rhonchi, clear to auscultation bilateral Cardiovascular: RRR Gastrointestinal: soft, non-tender, positive bowel sounds Musculoskeletal: no edema, pulses present Neurological: moves all 4 limbs Lymphatic: no nodes Psychiatric: normal affect Skin: no rash, normal turgor Dx/Plan (1) Chest pain, rule out acute myocardial infarction Code(s): R07.9 - CHEST PAIN, UNSPECIFIED Status: Acute (2) DM2 (diabetes mellitus, type 2) Status: Chronic (3) HLD (hyperlipidemia) Code(s): E78.5 - HYPERLIPIDEMIA, UNSPECIFIED Status: Chronic (4) HTN (hypertension) Code(s): I10 - ESSENTIAL (PRIMARY) HYPERTENSION Status: Chronic (5) Osteoarthritis Code(s): M19.90 - UNSPECIFIED OSTEOARTHRITIS, UNSPECIFIED SITE Status: Chronic - Plan Plan: Mrs. Felix presents with chest pain and tremor for the past 4 days. 1. Atypical chest pain reproducible chest pain, ekg wnl, trop negx 3 * EKG/nitro for repeat chest pain * Stress was to be preformed this morning; however, the patient refused the stress test. We discussed the risks and benefits, but the refused the stress. * ASCVD: 30.2% * Will start on low dose ASA * Currently on a statin 2. Elevated D-dimer hx of blood clot, normal rate, no O2 requirement * CTA: Neg 3. Anxiety/depression likely contributing to presentation * Continue home meds 4. HTN * Stable, continue home meds 5. HLD * Continue home meds 6. IDDM * Continue home meds * Mod SSI, achs accuchecks 7. GERD * Continue home meds 8. Morbid obesity/hypoventilation/lily * CPAP at night 9. Chronic opioid misuse * Recently flagged on [employer], misuse documented in clinic * No controlled substances Code Status: Full Ppx: lovenox PCP: LEANDER Dispo: Patient refused stress this morning even after explanation of the risks and benefits. Meds will be updated and sent. CTA negative. Will d/c home.
[2019-11-22] MEDS ORDERED: HumuLIN 70/30 (300 UNITS/3 ML VIAL) SC SCH (09:00)
[2019-11-22] MEDS ORDERED: Lisinopril 20 MG TAB PO SCH (09:00)
[2019-11-22] MEDS ORDERED: Enoxaparin Sodium 40 MG/0.4 ML SYRINGE SC SCH (09:00)
--- NOTE | 2019-11-22 09:50 | CT ---
EXAM: CT angiogram of the chest including 3-D rendering: HISTORY: History of prior blood clots in legs chest pain elevated d-dimer COMPARISON: Abdomen and pelvic CT scan 05/05/2017 FINDINGS: There is adequate opacification of the pulmonary arteries. No evidence for aortic aneurysm or dissection. No convincing CT evidence for acute pulmonary embolism. No significant acute pulmonary parenchymal process. No evidence for mediastinal mass or adenopathy. No evidence for pleural or pericardial effusion. Approximately 3.5 cm diameter benign cavernous hemangioma in the right lobe of the liver, stable. IMPRESSION: No convincing CT evidence for acute pulmonary embolism.
--- NOTE | 2019-11-22 11:48 | PRG ---
DATE OF SERVICE: 11/22/2019 Ms. Felix is an obese 59-year-old black female who presented to the ER with chest pain and tremor for the past four days. She had been admitted for observation and a stress test, but she is now refusing the stress test. Her workup thus far includes the following. Her white count is 8100, hemoglobin is 13.5, hematocrit 43 with an MCV of 76. Chemistries; sodium 141, potassium 3.5, chloride 105; bicarb 26, BUN 10, creatinine 0.75, random glucose 159. Her troponins were negative x3. She also had a chest thorax CTA. The impression was there was no CT evidence for acute pulmonary embolism. Her chest x-ray showed some mild cardiomegaly, otherwise normal. As stated, she is refusing a stress test, so she will be discharged today. Job ID: [id number]
[2019-11-22] MEDS: metFORMIN 500 MG TAB PO SCH (11:53)
[2019-11-22 12:30] VITALS: BP 144/94; TEMP 99.2
[2019-11-22] MEDS ORDERED: Iopamidol 370 76% 100 ML VIAL ONE (14:52)
--- NOTE | 2019-11-23 12:20 | DIS ---
DATE OF ADMISSION: 11/21/2019 DATE OF DISCHARGE: 11/22/2019 RESIDENT: Karthik Sanders MD ADMISSION ATTENDING: Doug Patel MD DISCHARGE ATTENDING: Jose Alfredo Morocho MD CONSULTS: None. PROCEDURES: Chest x-ray on 11/21 suggest mild cardiomegaly, increased density in the left base, most likely related to overlying soft tissue. CTA on 11/22/2019 shows adequate opacification of the pulmonary arteries. No evidence of aortic aneurysm or dissection. No convincing CT evidence for acute PE. No significant acute pulmonary parenchymal process. No evidence of mediastinal mass or adenopathy. No evidence for pleural or pericardial effusion. A 3.5 cm diameter uncavernous hemangioma in the right lobe of the liver. Stress test was to be performed on 11/22/2019, but the patient refused. PRIMARY DIAGNOSES: Atypical chest pain and elevated D-dimer. SECONDARY DIAGNOSES: Anxiety, depression, hypertension, hyperlipidemia, diabetes type 2, GERD, morbid obesity, hypoventilation obstructive sleep apnea, and chronic opioid misuse. DISCHARGE MEDICATIONS: Continue home medications of: 1. Humulin 70/30, 22 units q.a.m. 2. Metformin 500 mg b.i.d. 3. Benazepril 20 mg p.o. daily. 4. Humulin 22 units at bedtime. 5. Simvastatin 1 tablet at bedtime. 6. Protonix 40 mg at bedtime. 7. Vitamin D3 of 50,000 units as directed. 8. Glipizide 10 mg b.i.d. 9. Promethazine 25 mg t.i.d. p.r.n. 10. Tizanidine 4 mg b.i.d. p.r.n. 11. Zyrtec 10 mg daily. DISCONTINUED MEDICATIONS: 1. [place] 5. 2. Solu-Medrol. 3. Nitrostat. 4. Prednisone. HISTORY OF PRESENT ILLNESS: The patient is a 59-year-old female, who presents with chest pain and tremor for the past four days. She reports it started four days ago, when she was taken off [place] by her PCP and since then, she reports headaches, shortness of breath, and tremors. She reports never having these kinds of symptoms before in the distant past. She had to stay in the hospital for three weeks with a blood clot in her leg. She is currently not taking blood thinners. Denies any cardiovascular disease. She is taking her other medications as prescribed and she has a history of anxiety. In the ED, she was given aspirin, famotidine, methylprednisolone, and Benadryl. 1. Atypical chest pain. Reproducible chest pain. EKG within normal limits. Troponins were negative x3. EKG and nitroglycerine relieved chest pain. Stress was to be performed, but the patient refused. We discussed the risks and benefits of this, but the patient still refused the stress after that. The patient will be discharged home with return precautions given ASCVD was 30.2%. Recommended starting low-dose aspirin, but not given due to risk of anaphylaxis with aspirin due to past history of allergy, currently on a statin. 2. Elevated D-dimer. History of blood clot. Normal rate. No O2 requirement. CTA negative. 3. Anxiety and depression, likely contributing to presentation. Continue home medications. 4. Hypertension, stable. Continue home medications. 5. Hyperlipidemia. Continue home medications. 6. Diabetes type 2. Continue home medications. 7. GERD. Continue home medications. 8. Morbid obesity and hypoventilation obstructive sleep apnea. CPAP at night. 9. Chronic opioid misuse. Recently flagged on [facility] misuse documented in clinic. No controlled substances. DISPOSITION: Stable. DISCHARGE INSTRUCTIONS: 1. Location: Home. 2. Activity: As tolerated. 3. Diet: Diabetic, heart healthy, and low-sodium diet. 4. Follow up with Dr. Gatica in 7 days of discharge at [facility]. Job ID: [id number]
== END 2019-11-22 13:52 | disposition home or self-care (01) ==
LOC: ERS 11:06 → ERHOLD 13:14 → 2SW 15:21
PROVIDERS: ADMIT Family Medicine; ATTEND Family Medicine
DX: R07.89 Other chest pain (principal); R79.1 Abnormal coagulation profile; R25.1 Tremor, unspecified; F41.9 Anxiety disorder, unspecified; F32.9 Major depressive disorder, single episode, unspecified; I10 Essential (primary) hypertension; E78.5 Hyperlipidemia, unspecified; E11.9 Type 2 diabetes mellitus without complications; K21.9 Gastro-esophageal reflux disease without esophagitis; M19.90 Unspecified osteoarthritis, unspecified site; F17.220 Nicotine dependence, chewing tobacco, uncomplicated; E66.2 Morbid (severe) obesity with alveolar hypoventilation; Z68.43 Body mass index [BMI] 50.0-59.9, adult; Z79.4 Long term (current) use of insulin; Z79.899 Other long term (current) drug therapy; Z88.5 Allergy status to narcotic agent; Z88.6 Allergy status to analgesic agent; Z88.8 Allergy status to other drugs, medicaments and biological substances
CPT/HCPCS: 36415; 36416; 71045; 71275; 80053; 80061; 82550; 83690; 84484; 85025; 85379; 93005; 94760; 96372; 96374; 96375; G0378; J1200; J1650; J1815; J2930; J7512; Q0163; Q0169; Q9967; S0028

== ENCOUNTER 2020-07-28 15:11 | Outpatient (CLI) | payer OTHER ==
--- NOTE | 2020-07-28 15:55 | MMO ---
Bilateral MAMMO Bilat Screen [facility]. CLINICAL HISTORY: Patient is 60 years old and is seen for screening. The patient has the following family history of breast cancer: mother, malignant (generic). The patient has no personal history of cancer. The patient has a history of left Excisional Biopsy in 1993 - benign. VIEWS: The views performed were: bilateral craniocaudal with tomosynthesis and bilateral mediolateral oblique with tomosynthesis. FILMS COMPARED: The present examination has been compared to prior imaging studies performed at [facility] on 01/15/2010, 09/09/2015, 01/14/2017 and 05/29/2019. This study has been interpreted with the assistance of computer-aided detection. MAMMOGRAM FINDINGS: The breasts are almost entirely fat. There are no suspicious masses, suspicious calcifications, or new areas of architectural distortion. IMPRESSION: THERE IS NO MAMMOGRAPHIC EVIDENCE OF MALIGNANCY. A ROUTINE FOLLOW-UP MAMMOGRAM IN 1 YEAR IS RECOMMENDED. THE RESULTS OF THIS EXAM WERE SENT TO THE PATIENT. ACR BI-RADS Category 1 - Negative MAMMOGRAPHY NOTE: 1. A negative mammogram report should not delay a biopsy if a dominant of clinically suspicious mass is present. 2. Approximately 10% to 15% of breast cancers are not detected by mammography. 3. Adenosis and dense breasts may obscure an underlying neoplasm. Reported by: DECLAN COHEN MD Electonically Signed: [id number]
== END 2020-07-28 15:12 | disposition home or self-care (01) ==
LOC: BICMAMMO 15:11
PROVIDERS: ATTEND Family Medicine
DX: Z12.31 Encounter for screening mammogram for malignant neoplasm of breast (principal); Z80.3 Family history of malignant neoplasm of breast; Z91.89 Other specified personal risk factors, not elsewhere classified
CPT/HCPCS: 77063; 77067

== ENCOUNTER 2022-09-13 21:17 | Observation (INO) | payer OTHER, SELFPAY ==
[2022-09-13 22:59] LABS: #Eosinphils 0.1 thou/uL (0.0-0.7); #Lymphocytes 3.1 thou/uL (1.20-3.40); #Monocytes 0.7 thou/uL (0.11-0.59); #Neutrophils 6.5 thou/uL (1.40-6.50); %Basophils 0.1 % (0.0-1.0); %Eosinophils 0.8 % (0.0-10.0); %Lymphocytes 29.9 % (21.0-51.0); %Monocytes 6.4 % (0.0-10.0); %Neutrophils 62.8 % (42.0-75.0); Mean Corpuscular Hemoglobin 22.7 pg (27.0-31.0); Mean Corpuscular Volume 75.7 fl (78.0-98.0); Mean Platelet Volume 9.5 fL (7.4-10.4); Platelet Count 244 10x3/uL (130-400); RBC Distribution Width 15.5 % (11.5-14.5); Red Blood Cell (RBC) Count 5.28 mill/uL (4.20-5.40); White Blood Cell (WBC) Count 10.4 10x3/uL (4.8-10.8)
[2022-09-13 23:20] LABS: ALT (SGPT) 17 U/L (8-55); AST (SGOT) 15 U/L (5-34); Alkaline Phosphatase 59 U/L (40-110); Anion Gap 11 mmol/L (10-20); BUN (Urea Nitrogen) 5 mg/dL (9.8-20.1); Bilirubin, Total 0.8 mg/dL (0.2-1.2); Calc. Creatinine Clearance 0 mL/min (70-130); Carbon Dioxide 28 mmol/L (23-31); Chloride 98 mmol/L (98-107); Estimated GFR 99; Globulin 3.4 g/dL (2.4-3.5); Glucose 189 mg/dL (80-115); Lipase 13 U/L (8-78); Potassium 3.1 mmol/L (3.5-5.1); Protein, Total 6.4 g/dL (5.8-8.1); Sodium 134 mmol/L (136-145)
[2022-09-14 01:01] LABS: Bacteria/HPF None Seen HPF (None Seen); Bilirubin Negative (Negative); Blood, Urine Trace (Negative); Clarity Turbid (Clear); Glucose, Urine (Dipstick) 50 mg/dL (Negative); Ketone, Urine Negative (Negative); Leukocyte Negative Leu/uL (Negative); Nitrite Negative (Negative); Protein, Urine (Dipstick) 10 mg/dL (Neg-Trace); RBC/HPF 0-3 HPF (0-3); Specific Gravity, Urine 1.025 (1.002-1.036); Urobilinogen Normal mg/dL (Less than 2); pH, Urine 5.5 (5.0-9.0)
[2022-09-14 01:27] LABS: SARS-CoV-2 NAA Rapid Test Not Detected (NotDetected)
[2022-09-14] MEDS ORDERED: Acetaminophen 325 MG TAB PO PRN (01:54)
[2022-09-14] MEDS ORDERED: Potassium Bicarbonate/Cit Ac 20 MEQ TAB PO SCH (02:00)
[2022-09-14 02:22] LABS: Troponin I Less than 0.010 ng/mL (< 0.028)
[2022-09-14] MEDS ORDERED: Dextrose 50% Abboject 50 ML SYRINGE SLOW IVP PRN (04:39)
[2022-09-14] MEDS ORDERED: HumaLOG 300 UNITS/3 ML VIAL SC PRN ×2 (04:39)
[2022-09-14] MEDS ORDERED: Dextrose 5% in Water 1,000 ML IV PRN (04:39)
[2022-09-14 05:26] LABS: #Eosinphils 0.1 thou/uL (0.0-0.7); #Lymphocytes 2.6 thou/uL (1.20-3.40); #Monocytes 0.8 thou/uL (0.11-0.59); #Neutrophils 5.9 thou/uL (1.40-6.50); %Basophils 0.1 % (0.0-1.0); %Eosinophils 1.4 % (0.0-10.0); %Lymphocytes 27.8 % (21.0-51.0); %Monocytes 8.3 % (0.0-10.0); %Neutrophils 62.4 % (42.0-75.0); Hemoglobin 12.5 g/dL (12.0-16.0); Mean Corpuscular HGB CONC 30.8 g/dL (32.0-36.0); Mean Corpuscular Hemoglobin 23.2 pg (27.0-31.0); Mean Corpuscular Volume 75.2 fl (78.0-98.0); Mean Platelet Volume 10.9 fL (7.4-10.4); Platelet Count 164 10x3/uL (130-400); RBC Distribution Width 15.6 % (11.5-14.5); Red Blood Cell (RBC) Count 5.41 mill/uL (4.20-5.40); White Blood Cell (WBC) Count 9.5 10x3/uL (4.8-10.8)
[2022-09-14 05:35] LABS: Magnesium 1.3 mg/dL (1.6-2.6)
[2022-09-14 05:40] LABS: Anion Gap 14 mmol/L (10-20); BUN (Urea Nitrogen) 4 mg/dL (9.8-20.1); Calc. Creatinine Clearance 0 mL/min (70-130); Calcium 8.9 mg/dL (7.8-10.44); Carbon Dioxide 28 mmol/L (23-31); Chloride 98 mmol/L (98-107); Estimated GFR 103; Glucose 183 mg/dL (80-115); Sodium 137 mmol/L (136-145)
[2022-09-14 05:41] LABS: Troponin I 0.012 ng/mL (< 0.028)
[2022-09-14 06:03] VITALS: BMI 64.2
[2022-09-14] MEDS ORDERED: HumaLOG 300 UNITS/3 ML VIAL ONE (06:20)
[2022-09-14] MEDS ORDERED: Pot Chloride/Pot Bicarb/Cit Ac 25 mEq Effervescent Tablet ONE (06:20)
[2022-09-14] MEDS ORDERED: Benzonatate 100 MG CAP PO PRN (08:08)
[2022-09-14] MEDS ORDERED: tiZANidine HCl 4 MG TAB PO PRN (08:39)
[2022-09-14] MEDS ORDERED: Acetaminophen/Codeine 30-300mg Tablet PO PRN (08:40)
[2022-09-14] MEDS ORDERED: FLU VACC QS2022-23(6MOS UP)/PF 60 MCG/0.5 ML SYRINGE IM ONE (09:00)
[2022-09-14] MEDS ORDERED: Enoxaparin Sodium 40 MG/0.4 ML SYRINGE SC SCH (09:00)
[2022-09-14] MEDS ORDERED: Lisinopril 20 MG TAB PO SCH (09:00)
[2022-09-14] MEDS ORDERED: Potassium Chloride 20 MEQ TAB PO SCH (09:00)
[2022-09-14] MEDS ORDERED: Magnesium 2 GM/50 ML(in water) 2 GM in Premix Bag 1 BAG IVPB SCH (09:00)
[2022-09-14] MEDS ORDERED: Enoxaparin Sodium 40 MG/0.4 ML SYRINGE ONE (10:05)
[2022-09-14] MEDS ORDERED: Magnesium 2 GM/50 ML BAG (IN WATER) ONE (10:05)
[2022-09-14] MEDS ORDERED: Potassium Chloride 20 MEQ TAB ONE (10:05)
[2022-09-14 10:11] LABS: Legionella Urinary Ag Negative (Negative); Strep pneumo Urine Ag NEGATIVE (NEGATIVE)
[2022-09-14 14:22] VITALS: BP 152/105; TEMP 99
[2022-09-14] MEDS ORDERED: Atorvastatin Calcium 20 MG TAB PO SCH (21:00)
[2022-09-15] MEDS ORDERED: Ergocalciferol 1.25 MG(50,000 UNITS) CAP PO SCH (09:00)
== END 2022-09-14 14:22 | disposition home or self-care (01) ==
LOC: ERS 21:17 → ERHOLD 09-14 01:22
PROVIDERS: ADMIT Internal Medicine; ATTEND Nurse Practitioner Acute Care
DX: J18.9 Pneumonia, unspecified organism (principal); R07.89 Other chest pain; E87.6 Hypokalemia; E83.42 Hypomagnesemia; J44.9 Chronic obstructive pulmonary disease, unspecified; E11.9 Type 2 diabetes mellitus without complications; I10 Essential (primary) hypertension; G47.33 Obstructive sleep apnea (adult) (pediatric); E78.5 Hyperlipidemia, unspecified; J96.11 Chronic respiratory failure with hypoxia; K21.9 Gastro-esophageal reflux disease without esophagitis; M19.90 Unspecified osteoarthritis, unspecified site; E66.01 Morbid (severe) obesity due to excess calories; Z68.44 Body mass index [BMI] 60.0-69.9, adult; Z87.891 Personal history of nicotine dependence; Z79.4 Long term (current) use of insulin; Z79.84 Long term (current) use of oral hypoglycemic drugs; Z79.899 Other long term (current) drug therapy; Z88.1 Allergy status to other antibiotic agents; Z88.2 Allergy status to sulfonamides; Z88.5 Allergy status to narcotic agent; Z88.6 Allergy status to analgesic agent; Z88.8 Allergy status to other drugs, medicaments and biological substances; Z91.041 Radiographic dye allergy status; Z20.822 Contact with and (suspected) exposure to COVID-19
CPT/HCPCS: 36415; 36416; 71045; 80048; 80053; 81003; 81015; 83605; 83690; 83735; 83880; 84484; 85025; 87040; 87449; 87899; 93005; 96365; G0378; J1650; J1815; J1956; J3475; U0002

== ENCOUNTER 2022-09-27 21:40 | Inpatient (IN) | payer SELFPAY ==
[2022-09-27 22:23] LABS: Actual Bicarbonate (HCO3v) 30 mEq/L (22-28); Analyzer IN Cardio ER; Base Excess 5.7 mEq/L (-2.0 to +3.0); Calcium, Ionized (venous) 1.18 mmol/L (1.16-1.32); Chloride (VBG) 97 mmol/L (98-106); Hemoglobin (Hb) 12.6 g/dL (11.7-16.0); Potassium (VBG) 3.61 mmol/L (3.70-5.30); Sodium 133.5 mmol/L (133-146); pH (venous) 7.47 (7.32-7.43)
[2022-09-27 22:43] LABS: #Eosinphils 0.1 thou/uL (0.0-0.7); #Lymphocytes 2.7 thou/uL (1.20-3.40); #Monocytes 0.6 thou/uL (0.11-0.59); #Neutrophils 5.5 thou/uL (1.40-6.50); %Basophils 0.4 % (0.0-1.0); %Eosinophils 1.3 % (0.0-10.0); %Lymphocytes 30.1 % (21.0-51.0); %Monocytes 6.6 % (0.0-10.0); %Neutrophils 61.6 % (42.0-75.0); Hemoglobin 11.8 g/dL (12.0-16.0); Mean Corpuscular HGB CONC 30.8 g/dL (32.0-36.0); Mean Corpuscular Hemoglobin 23.3 pg (27.0-31.0); Mean Corpuscular Volume 75.5 fl (78.0-98.0); Mean Platelet Volume 8.9 fL (7.4-10.4); Platelet Count 289 10x3/uL (130-400); RBC Distribution Width 15.5 % (11.5-14.5); Red Blood Cell (RBC) Count 5.07 mill/uL (4.20-5.40); White Blood Cell (WBC) Count 8.9 10x3/uL (4.8-10.8)
[2022-09-27 22:49] LABS: Bacteria/HPF None Seen HPF (None Seen); Bilirubin Negative (Negative); Blood, Urine 1+ (Negative); Clarity Clear (Clear); Glucose, Urine (Dipstick) 30 mg/dL (Negative); Ketone, Urine Negative (Negative); Leukocyte Negative Leu/uL (Negative); Mucous/LPF 1+ LPF (<2+); Nitrite Negative (Negative); Protein, Urine (Dipstick) 30 mg/dL (Neg-Trace); Specific Gravity, Urine 1.026 (1.002-1.036); Squamous Epithelial 0-3 HPF (0-3); Urobilinogen 6 mg/dL (Less than 2); WBC/HPF 0-3 HPF (0-3)
[2022-09-27 23:01] LABS: ALT (SGPT) 17 U/L (8-55); AST (SGOT) 17 U/L (5-34); Alkaline Phosphatase 60 U/L (40-110); Anion Gap 14 mmol/L (10-20); BUN (Urea Nitrogen) 5 mg/dL (9.8-20.1); Bilirubin, Total 1.4 mg/dL (0.2-1.2); Calc. Creatinine Clearance 0 mL/min (70-130); Calcium 9.3 mg/dL (7.8-10.44); Carbon Dioxide 29 mmol/L (23-31); Chloride 99 mmol/L (98-107); Estimated GFR 97; Globulin 3.1 g/dL (2.4-3.5); Glucose 177 mg/dL (80-115); Potassium 4.1 mmol/L (3.5-5.1); Protein, Total 6.1 g/dL (5.8-8.1); Sodium 138 mmol/L (136-145)
[2022-09-27] MEDS ORDERED: Aspirin Chewable 81 MG TAB ONE (23:07)
[2022-09-27] MEDS ORDERED: Cefepime 2 GM VIAL ONE (23:07)
[2022-09-27] MEDS ORDERED: diphenhydrAMINE 50 MG/ML VIAL ONE (23:07)
[2022-09-27] MEDS ORDERED: Famotidine/PF 20 mg/2ml Vial ONE (23:07)
[2022-09-27] MEDS ORDERED: methylPREDNISolone Sod Succ 40 MG VIAL ONE (23:07)
[2022-09-28] MEDS ORDERED: Vancomycin 1 GM/200 ML (FROZEN) BAG ONE (00:21)
[2022-09-28] MEDS ORDERED: Fentanyl 100 MCG/2 ML VIAL ONE (01:00)
[2022-09-28 05:45] LABS: Troponin I Less than 0.010 ng/mL (< 0.028)
[2022-09-28 08:52] LABS: SARS-CoV-2 NAA Rapid Test Not Detected (NotDetected)
[2022-09-28 08:56] LABS: Troponin I Less than 0.010 ng/mL (< 0.028)
[2022-09-28] MEDS ORDERED: Ondansetron ODT 4 MG TAB PO PRN (08:57)
[2022-09-28] MEDS ORDERED: Ondansetron PF 4 MG/2 ML Vial IVP PRN (08:57)
[2022-09-28] MEDS ORDERED: Enoxaparin Sodium 40 MG/0.4 ML SYRINGE SC SCH (09:00)
[2022-09-28] MEDS ORDERED: Enoxaparin Sodium 40 MG/0.4 ML SYRINGE ONE (09:32)
[2022-09-28] MEDS: Sodium Chloride 0.9% 1,000 ML IV SCH (09:41)
[2022-09-28 10:23] LABS: Hemoglobin A1c 7.2 % (4.0-6.0)
[2022-09-28] MEDS ORDERED: Cefepime 1 GM VIAL ONE (11:38)
[2022-09-28] MEDS: Cefepime 1 GM in Sodium Chloride 0.9% 100 ML IVPB SCH ×2 (11:42→23:14)
[2022-09-28] MEDS ORDERED: Lidocaine 4% PF 5 ML AMP NEB SCH (12:15)
[2022-09-28] MEDS ORDERED: Iopamidol-370 76% 500 ML 1 ML ONE (13:16)
[2022-09-28] MEDS: VANCOMYCIN 2 GRAM/500 ML BAG 2 GM in Premix Bag 1 BAG IVPB SCH (17:31)
[2022-09-28] MEDS ORDERED: HumaLOG 300 UNITS/3 ML VIAL SC PRN (19:34)
[2022-09-28] MEDS ORDERED: Dextrose 5% in Water 1,000 ML IV PRN (19:34)
[2022-09-28] MEDS ORDERED: Dextrose 50% Abboject 50 ML SYRINGE SLOW IVP PRN (19:34)
[2022-09-28] MEDS ORDERED: Ketorolac Tromethamine 30 MG/ML VIAL IVP SCH (21:30)
[2022-09-28] MEDS: Promethazine 25 MG TAB PO PRN (22:04)
[2022-09-29] MEDS: Melatonin 3 MG TAB PO PRN ×2 (00:12→21:28)
[2022-09-29] MEDS: traMADol HCl 50 MG TAB PO PRN ×2 (00:12→17:38)
[2022-09-29] MEDS: Acetaminophen 325 MG TAB PO PRN ×2 (02:32→21:27)
[2022-09-29] MEDS: VANCOMYCIN 2 GRAM/500 ML BAG 2 GM in Premix Bag 1 BAG IVPB SCH (04:46)
[2022-09-29 05:09] LABS: Anion Gap 12 mmol/L (10-20); BUN (Urea Nitrogen) 9 mg/dL (9.8-20.1); Calc. Creatinine Clearance 116 mL/min (70-130); Calcium 8.9 mg/dL (7.8-10.44); Carbon Dioxide 26 mmol/L (23-31); Chloride 100 mmol/L (98-107); Estimated GFR 99; Glucose 206 mg/dL (80-115); Potassium 3.6 mmol/L (3.5-5.1); Sodium 134 mmol/L (136-145)
[2022-09-29 08:23] LABS: #Eosinphils 0.1 thou/uL (0.0-0.7); #Lymphocytes 2.2 thou/uL (1.20-3.40); #Monocytes 0.5 thou/uL (0.11-0.59); %Eosinophils 0.8 % (0.0-10.0); %Lymphocytes 28.1 % (21.0-51.0); %Monocytes 6.1 % (0.0-10.0); Hemoglobin 11.4 g/dL (12.0-16.0); Mean Corpuscular HGB CONC 30.7 g/dL (32.0-36.0); Mean Platelet Volume 8.7 fL (7.4-10.4); Platelet Count 291 10x3/uL (130-400); RBC Distribution Width 15.2 % (11.5-14.5); Red Blood Cell (RBC) Count 4.94 mill/uL (4.20-5.40); White Blood Cell (WBC) Count 7.8 10x3/uL (4.8-10.8)
[2022-09-29] MEDS: Polyethylene Glycol 3350 17 GM Packet PO SCH (08:27)
[2022-09-29] MEDS: Lidocaine 5% Patch TD SCH (08:27)
[2022-09-29] MEDS ORDERED: Lidocaine 2% PF 5 ML VIAL ONE ×2 (08:35→08:48)
[2022-09-29 08:36] LABS: ALT (SGPT) 18 U/L (8-55); AST (SGOT) 16 U/L (5-34); Albumin 2.5 g/dL (3.4-4.8); Alkaline Phosphatase 55 U/L (40-110); Anion Gap 11 mmol/L (10-20); BUN (Urea Nitrogen) 11 mg/dL (9.8-20.1); Bilirubin, Total 0.8 mg/dL (0.2-1.2); Calc. Creatinine Clearance 120 mL/min (70-130); Calcium 8.7 mg/dL (7.8-10.44); Carbon Dioxide 25 mmol/L (23-31); Chloride 102 mmol/L (98-107); Estimated GFR 100; Globulin 3.2 g/dL (2.4-3.5); Glucose 175 mg/dL (80-115); Magnesium 1.6 mg/dL (1.6-2.6); Potassium 3.3 mmol/L (3.5-5.1); Protein, Total 5.7 g/dL (5.8-8.1); Sodium 135 mmol/L (136-145)
[2022-09-29] MEDS ORDERED: Albuterol Sulfate 2.5 mg/3 ml Neb ONE (08:47)
[2022-09-29] MEDS ORDERED: Fentanyl 250 MCG/5 ML VIAL ONE (08:59)
[2022-09-29] MEDS ORDERED: SUGAMMADEX SODIUM 200 MG/2 ML VIAL ONE (08:59)
[2022-09-29] MEDS ORDERED: PROPOFOL 200 MG/20 ML VIAL ONE (09:36)
[2022-09-29] MEDS ORDERED: Dexamethasone 20 MG/5 ML VIAL ONE (09:36)
[2022-09-29] MEDS ORDERED: Lidocaine 1% PF 5 ML VIAL ONE (09:36)
[2022-09-29] MEDS ORDERED: Rocuronium Bromide 10 MG/ML (10ML VIAL) ONE (09:36)
[2022-09-29 09:54] LABS: MDiff Complete? YES; Microcytosis SLIGHT = 6-15 cells (100X) (0-5/hpf); Platelet Morphology Comment Appears Adequate; Polychromasia SLIGHT = 2-3 cells (100X) (0-2/hpf)
[2022-09-29] MEDS ORDERED: Fentanyl 100 MCG/2 ML VIAL ONE ×3 (10:15→10:43)
[2022-09-29] MEDS ORDERED: Promethazine HCl 25 MG/ML VIAL ONE (10:45)
[2022-09-29] MEDS: Sodium Chloride 0.9% 1,000 ML IV SCH (14:49)
[2022-09-29] MEDS: HumaLOG 300 UNITS/3 ML VIAL SC PRN (17:38)
[2022-09-29] MEDS: Promethazine 25 MG TAB PO PRN (17:38)
[2022-09-29] MEDS: Transdermal Patch Removal TOP SCH (21:27)
[2022-09-30] MEDS: Nitroglycerin 0.4 MG TAB (25 Tab Bottle) SL PRN ×3 (03:57→04:07)
[2022-09-30] MEDS: traMADol HCl 50 MG TAB PO PRN ×3 (04:30→19:54)
[2022-09-30 04:46] LABS: ALT (SGPT) 21 U/L (8-55); AST (SGOT) 17 U/L (5-34); Albumin 2.7 g/dL (3.4-4.8); Alkaline Phosphatase 67 U/L (40-110); Anion Gap 12 mmol/L (10-20); BUN (Urea Nitrogen) 12 mg/dL (9.8-20.1); Bilirubin, Total 0.5 mg/dL (0.2-1.2); Calc. Creatinine Clearance 178 mL/min (70-130); Calcium 8.8 mg/dL (7.8-10.44); Carbon Dioxide 25 mmol/L (23-31); Chloride 101 mmol/L (98-107); Estimated GFR 98; Globulin 3.4 g/dL (2.4-3.5); Glucose 271 mg/dL (80-115); Magnesium 1.8 mg/dL (1.6-2.6); Potassium 4.1 mmol/L (3.5-5.1); Protein, Total 6.1 g/dL (5.8-8.1); Sodium 134 mmol/L (136-145)
[2022-09-30 04:47] LABS: #Lymphocytes 1.7 thou/uL (1.20-3.40); #Monocytes 0.4 thou/uL (0.11-0.59); #Neutrophils 6.1 thou/uL (1.40-6.50); %Basophils 0.3 % (0.0-1.0); %Eosinophils 0.1 % (0.0-10.0); %Lymphocytes 21.2 % (21.0-51.0); %Monocytes 4.8 % (0.0-10.0); %Neutrophils 73.7 % (42.0-75.0); Hemoglobin 11.5 g/dL (12.0-16.0); Mean Corpuscular HGB CONC 31.1 g/dL (32.0-36.0); Mean Corpuscular Hemoglobin 23.6 pg (27.0-31.0); Mean Corpuscular Volume 75.7 fl (78.0-98.0); Mean Platelet Volume 8.9 fL (7.4-10.4); Platelet Count 323 10x3/uL (130-400); Red Blood Cell (RBC) Count 4.88 mill/uL (4.20-5.40); White Blood Cell (WBC) Count 8.2 10x3/uL (4.8-10.8)
[2022-09-30 04:48] LABS: Troponin I Less than 0.010 ng/mL (< 0.028)
[2022-09-30] MEDS ORDERED: traMADol HCl 50 MG TAB PO SCH (06:15)
[2022-09-30] MEDS: Promethazine 25 MG TAB PO PRN ×3 (06:33→19:54)
[2022-09-30] MEDS: HumaLOG 300 UNITS/3 ML VIAL SC PRN ×3 (06:37→17:43)
[2022-09-30] MEDS: Sodium Chloride 0.9% 1,000 ML IV SCH (10:03)
[2022-09-30] MEDS: Lidocaine 5% Patch TD SCH (10:03)
[2022-09-30] MEDS: Polyethylene Glycol 3350 17 GM Packet PO SCH (10:04)
[2022-09-30] MEDS: Melatonin 3 MG TAB PO PRN (19:55)
[2022-09-30] MEDS: Transdermal Patch Removal TOP SCH (20:32)
[2022-10-01] MEDS: traMADol HCl 50 MG TAB PO PRN (03:46)
[2022-10-01] MEDS: Promethazine 25 MG TAB PO PRN ×2 (03:47→16:17)
[2022-10-01 04:41] LABS: #Eosinphils 0.1 thou/uL (0.0-0.7); #Lymphocytes 2.3 thou/uL (1.20-3.40); #Monocytes 0.6 thou/uL (0.11-0.59); #Neutrophils 5.7 thou/uL (1.40-6.50); %Basophils 0.3 % (0.0-1.0); %Eosinophils 1.1 % (0.0-10.0); %Lymphocytes 26.4 % (21.0-51.0); %Monocytes 7.3 % (0.0-10.0); %Neutrophils 64.9 % (42.0-75.0); Hemoglobin 11.9 g/dL (12.0-16.0); Mean Corpuscular HGB CONC 31.3 g/dL (32.0-36.0); Mean Corpuscular Hemoglobin 23.7 pg (27.0-31.0); Mean Corpuscular Volume 75.7 fl (78.0-98.0); Mean Platelet Volume 8.9 fL (7.4-10.4); Platelet Count 298 10x3/uL (130-400); RBC Distribution Width 15.5 % (11.5-14.5); Red Blood Cell (RBC) Count 5.03 mill/uL (4.20-5.40); White Blood Cell (WBC) Count 8.8 10x3/uL (4.8-10.8)
[2022-10-01 05:08] LABS: ALT (SGPT) 17 U/L (8-55); AST (SGOT) 15 U/L (5-34); Albumin 2.8 g/dL (3.4-4.8); Alkaline Phosphatase 67 U/L (40-110); Anion Gap 11 mmol/L (10-20); BUN (Urea Nitrogen) 7 mg/dL (9.8-20.1); Bilirubin, Total 0.7 mg/dL (0.2-1.2); Calc. Creatinine Clearance 206 mL/min (70-130); Calcium 8.6 mg/dL (7.8-10.44); Carbon Dioxide 26 mmol/L (23-31); Chloride 101 mmol/L (98-107); Estimated GFR 102; Globulin 3.1 g/dL (2.4-3.5); Glucose 159 mg/dL (80-115); Magnesium 1.7 mg/dL (1.6-2.6); Potassium 3.7 mmol/L (3.5-5.1); Protein, Total 5.9 g/dL (5.8-8.1); Sodium 134 mmol/L (136-145)
[2022-10-01] MEDS: Sodium Chloride 0.9% 1,000 ML IV SCH (06:45)
[2022-10-01] MEDS: Lidocaine 5% Patch TD SCH (09:08)
[2022-10-01] MEDS: Polyethylene Glycol 3350 17 GM Packet PO SCH (09:08)
[2022-10-01] MEDS ORDERED: ALPRAZolam 0.5 MG TAB PO SCH ×2 (09:30→11:00)
[2022-10-01 09:49] VITALS: BMI 52.0
[2022-10-01] MEDS ORDERED: DULoxetine 30 MG CAP PO SCH (13:00)
[2022-10-01] MEDS: HYDROcodone/Acetaminophen 7.5/325 mg Tablet PO PRN (16:15)
[2022-10-01] MEDS ORDERED: predniSONE 50 MG TAB PO SCH (20:00)
[2022-10-01] MEDS: Enoxaparin Sodium 40 MG/0.4 ML SYRINGE SC SCH (21:06)
[2022-10-01] MEDS: Transdermal Patch Removal TOP SCH (21:24)
[2022-10-02] MEDS: traMADol HCl 50 MG TAB PO PRN ×2 (00:39→16:36)
[2022-10-02] MEDS: Melatonin 3 MG TAB PO PRN ×2 (00:39→20:22)
[2022-10-02] MEDS ORDERED: predniSONE 50 MG TAB PO SCH ×2 (02:00→08:00)
[2022-10-02 04:41] LABS: Anion Gap 11 mmol/L (10-20); BUN (Urea Nitrogen) 8 mg/dL (9.8-20.1); Calc. Creatinine Clearance 206 mL/min (70-130); Calcium 9.3 mg/dL (7.8-10.44); Carbon Dioxide 27 mmol/L (23-31); Chloride 97 mmol/L (98-107); Estimated GFR 102; Glucose 198 mg/dL (80-115); Potassium 4.3 mmol/L (3.5-5.1); Sodium 131 mmol/L (136-145)
[2022-10-02 06:56] LABS: Anisocytosis SLIGHT = 6-15 cells (100X) (0-5/hpf); Band 4 % (5-11); Hemoglobin 12.7 g/dL (12.0-16.0); Lymphocytes 19 % (21-51); MDiff Complete? YES; Mean Corpuscular HGB CONC 32.2 g/dL (32.0-36.0); Mean Corpuscular Hemoglobin 24.2 pg (27.0-31.0); Microcytosis SLIGHT = 6-15 cells (100X) (0-5/hpf); Monocytes 1 % (0-10); Neutrophil 76 % (42-75); Platelet Count 305 10x3/uL (130-400); RBC Distribution Width 15.5 % (11.5-14.5); Red Blood Cell (RBC) Count 5.24 mill/uL (4.20-5.40); White Blood Cell (WBC) Count 8.6 10x3/uL (4.8-10.8)
[2022-10-02] MEDS ORDERED: diphenhydrAMINE 50 MG CAP PO SCH (08:00)
[2022-10-02] MEDS: Lidocaine 5% Patch TD SCH (09:28)
[2022-10-02] MEDS: DULoxetine 30 MG CAP PO SCH (09:28)
[2022-10-02] MEDS: Polyethylene Glycol 3350 17 GM Packet PO SCH (09:28)
[2022-10-02] MEDS: HumaLOG 300 UNITS/3 ML VIAL SC PRN ×3 (12:20→22:13)
[2022-10-02] MEDS: tiZANidine HCl 4 MG TAB PO PRN (16:29)
[2022-10-02] MEDS: ALPRAZolam 0.25 MG TAB PO PRN (16:36)
[2022-10-02] MEDS: Transdermal Patch Removal TOP SCH (20:22)
[2022-10-02] MEDS: HYDROcodone/Acetaminophen 7.5/325 mg Tablet PO PRN (20:22)
[2022-10-02] MEDS: Enoxaparin Sodium 40 MG/0.4 ML SYRINGE SC SCH (20:22)
[2022-10-03] MEDS: Promethazine 25 MG TAB PO PRN ×3 (02:39→18:26)
[2022-10-03] MEDS: HYDROcodone/Acetaminophen 7.5/325 mg Tablet PO PRN ×2 (02:40→10:48)
[2022-10-03 06:40] LABS: Anion Gap 12 mmol/L (10-20); BUN (Urea Nitrogen) 14 mg/dL (9.8-20.1); Calc. Creatinine Clearance 177 mL/min (70-130); Calcium 9.2 mg/dL (7.8-10.44); Carbon Dioxide 27 mmol/L (23-31); Chloride 96 mmol/L (98-107); Estimated GFR 98; Glucose 277 mg/dL (80-115); Potassium 3.9 mmol/L (3.5-5.1); Sodium 131 mmol/L (136-145)
[2022-10-03] MEDS: DULoxetine 30 MG CAP PO SCH (09:32)
[2022-10-03] MEDS: Lidocaine 5% Patch TD SCH (09:33)
[2022-10-03] MEDS: Polyethylene Glycol 3350 17 GM Packet PO SCH (09:33)
[2022-10-03] MEDS: tiZANidine HCl 4 MG TAB PO PRN (10:53)
[2022-10-03] MEDS: ALPRAZolam 0.25 MG TAB PO PRN (10:53)
[2022-10-03] MEDS: HumaLOG 300 UNITS/3 ML VIAL SC PRN ×2 (14:53→18:29)
[2022-10-03] MEDS: Ketorolac Tromethamine 30 MG/ML VIAL IVP PRN (18:27)
[2022-10-03] MEDS: Melatonin 3 MG TAB PO PRN (18:36)
[2022-10-03] MEDS: Insulin NPH Human Isophane 100 UNIT/ML (10 ML VIAL) SC SCH (20:41)
[2022-10-03] MEDS: Enoxaparin Sodium 40 MG/0.4 ML SYRINGE SC SCH (20:41)
[2022-10-03] MEDS: Transdermal Patch Removal TOP SCH (20:55)
[2022-10-03] MEDS ORDERED: NPH, Human Insulin Isophane 300 UNIT/3 ML VIAL SC SCH (21:00)
[2022-10-04] MEDS: HYDROcodone/Acetaminophen 7.5/325 mg Tablet PO PRN ×2 (02:01→21:57)
[2022-10-04] MEDS: ALPRAZolam 0.25 MG TAB PO PRN ×3 (02:02→21:56)
[2022-10-04] MEDS: DULoxetine 30 MG CAP PO SCH (09:05)
[2022-10-04] MEDS: Insulin NPH Human Isophane 100 UNIT/ML (10 ML VIAL) SC SCH ×2 (09:06→21:54)
[2022-10-04] MEDS: Lidocaine 5% Patch TD SCH (09:06)
[2022-10-04] MEDS: Polyethylene Glycol 3350 17 GM Packet PO SCH (09:07)
[2022-10-04 11:14] LABS: #Basophils 0.2 thou/uL (0.0-0.2); #Lymphocytes 1.5 thou/uL (1.20-3.40); #Monocytes 0.7 thou/uL (0.11-0.59); #Neutrophils 5.6 thou/uL (1.40-6.50); %Basophils 2.8 % (0.0-1.0); %Eosinophils 0.5 % (0.0-10.0); %Lymphocytes 18.8 % (21.0-51.0); %Monocytes 9.1 % (0.0-10.0); %Neutrophils 68.8 % (42.0-75.0); Hemoglobin 12.2 g/dL (12.0-16.0); Mean Corpuscular HGB CONC 30.9 g/dL (32.0-36.0); Mean Corpuscular Hemoglobin 23.3 pg (27.0-31.0); Mean Corpuscular Volume 75.3 fl (78.0-98.0); Mean Platelet Volume 8.8 fL (7.4-10.4); Platelet Count 288 10x3/uL (130-400); RBC Distribution Width 15.7 % (11.5-14.5); Red Blood Cell (RBC) Count 5.23 mill/uL (4.20-5.40); White Blood Cell (WBC) Count 8.2 10x3/uL (4.8-10.8)
[2022-10-04] MEDS: Promethazine 25 MG TAB PO PRN ×2 (14:13→21:57)
[2022-10-04] MEDS: tiZANidine HCl 4 MG TAB PO PRN (14:13)
[2022-10-04] MEDS: Ketorolac Tromethamine 30 MG/ML VIAL IVP PRN ×2 (14:13→21:53)
[2022-10-04] MEDS ORDERED: DULoxetine 30 MG CAP PO SCH (17:45)
[2022-10-04] MEDS: Transdermal Patch Removal TOP SCH (21:52)
[2022-10-04] MEDS: Melatonin 3 MG TAB PO PRN (21:53)
[2022-10-04] MEDS: Enoxaparin Sodium 40 MG/0.4 ML SYRINGE SC SCH (21:58)
[2022-10-05] MEDS: Polyethylene Glycol 3350 17 GM Packet PO SCH (08:35)
[2022-10-05] MEDS: Insulin NPH Human Isophane 100 UNIT/ML (10 ML VIAL) SC SCH ×2 (08:40→21:10)
[2022-10-05] MEDS: Lidocaine 5% Patch TD SCH (08:41)
[2022-10-05 11:40] LABS: Anion Gap 11 mmol/L (10-20); BUN (Urea Nitrogen) 8 mg/dL (9.8-20.1); Calc. Creatinine Clearance 226 mL/min (70-130); Carbon Dioxide 32 mmol/L (23-31); Chloride 96 mmol/L (98-107); Estimated GFR 104; Glucose 127 mg/dL (80-115); Potassium 3.9 mmol/L (3.5-5.1); Sodium 135 mmol/L (136-145)
[2022-10-05] MEDS: Ketorolac Tromethamine 30 MG/ML VIAL IVP PRN (13:34)
[2022-10-05] MEDS: tiZANidine HCl 4 MG TAB PO PRN (13:34)
[2022-10-05] MEDS: Promethazine 25 MG TAB PO PRN ×2 (13:34→23:25)
[2022-10-05] MEDS: Transdermal Patch Removal TOP SCH (20:44)
[2022-10-05] MEDS: DULoxetine 30 MG CAP PO SCH (21:10)
[2022-10-05] MEDS: Enoxaparin Sodium 40 MG/0.4 ML SYRINGE SC SCH (21:10)
[2022-10-05] MEDS: Melatonin 3 MG TAB PO PRN (23:21)
[2022-10-06] MEDS: Ketorolac Tromethamine 30 MG/ML VIAL IVP PRN ×2 (00:14→20:34)
[2022-10-06] MEDS ORDERED: Sodium Chloride 0.9% 1,000 ML IV SCH (08:00)
[2022-10-06] MEDS: Insulin NPH Human Isophane 100 UNIT/ML (10 ML VIAL) SC SCH ×2 (08:18→20:24)
[2022-10-06] MEDS: Polyethylene Glycol 3350 17 GM Packet PO SCH (08:18)
[2022-10-06] MEDS: Lidocaine 5% Patch TD SCH (08:19)
[2022-10-06] MEDS ORDERED: Lidocaine 2% PF 5 ML VIAL ONE (09:31)
[2022-10-06] MEDS ORDERED: Bupivacaine HCl 0.5%/Epinephrine 1:200,000/PF 30 ml Vial ONE (09:31)
[2022-10-06] MEDS ORDERED: Midazolam HCl 2 mg/2 ml Vial ONE ×2 (09:34→10:23)
[2022-10-06] MEDS ORDERED: Ketamine 50 MG/ML (10ML VIAL) ONE ×2 (09:34→10:23)
[2022-10-06] MEDS ORDERED: Fentanyl 250 MCG/5 ML VIAL ONE (09:34)
[2022-10-06] MEDS ORDERED: SUGAMMADEX SODIUM 200 MG/2 ML VIAL ONE (09:38)
[2022-10-06] MEDS ORDERED: Sodium Chloride 0.9% 100 ML ONE (09:52)
[2022-10-06] MEDS ORDERED: CEFAZOLIN 2 GM VIAL ONE (09:52)
[2022-10-06] MEDS ORDERED: Ketorolac Tromethamine 30 MG/ML VIAL ONE (10:33)
[2022-10-06] MEDS ORDERED: Promethazine HCl 25 MG/ML VIAL IM PRN (10:58)
[2022-10-06] MEDS ORDERED: Promethazine HCl 25 MG/ML VIAL IVPB PRN (10:58)
[2022-10-06] MEDS: HYDROcodone/Acetaminophen 7.5/325 mg Tablet PO PRN (13:45)
[2022-10-06] MEDS: Promethazine 25 MG TAB PO PRN (14:00)
[2022-10-06] MEDS ORDERED: Promethazine 25 MG TAB PO PRN (14:52)
[2022-10-06] MEDS: HumaLOG 300 UNITS/3 ML VIAL SC PRN (16:41)
[2022-10-06] MEDS ORDERED: CEFAZOLIN 2 GM in Sodium Chloride 0.9% 100 ML IVPB SCH (19:30)
[2022-10-06] MEDS: DULoxetine 30 MG CAP PO SCH (20:24)
[2022-10-06] MEDS: Enoxaparin Sodium 40 MG/0.4 ML SYRINGE SC SCH (20:24)
[2022-10-06] MEDS: Melatonin 3 MG TAB PO PRN (20:33)
[2022-10-06] MEDS: Transdermal Patch Removal TOP SCH (21:50)
[2022-10-07] MEDS: Ketorolac Tromethamine 30 MG/ML VIAL IVP PRN (06:08)
[2022-10-07] MEDS: Insulin NPH Human Isophane 100 UNIT/ML (10 ML VIAL) SC SCH (08:41)
[2022-10-07] MEDS: Polyethylene Glycol 3350 17 GM Packet PO SCH (08:41)
[2022-10-07] MEDS: Lidocaine 5% Patch TD SCH (08:42)
[2022-10-07 08:48] VITALS: BP 151/76; TEMP 98
[2022-10-07 11:04] LABS: #Eosinphils 0.1 thou/uL (0.0-0.7); #Monocytes 0.6 thou/uL (0.11-0.59); #Neutrophils 5.2 thou/uL (1.40-6.50); %Basophils 0.2 % (0.0-1.0); %Eosinophils 1.8 % (0.0-10.0); %Lymphocytes 25.3 % (21.0-51.0); %Monocytes 7.2 % (0.0-10.0); %Neutrophils 65.6 % (42.0-75.0); Hemoglobin 11.9 g/dL (12.0-16.0); Mean Corpuscular Hemoglobin 23.6 pg (27.0-31.0); Mean Platelet Volume 8.7 fL (7.4-10.4); Platelet Count 276 10x3/uL (130-400); RBC Distribution Width 15.4 % (11.5-14.5); Red Blood Cell (RBC) Count 5.04 mill/uL (4.20-5.40); White Blood Cell (WBC) Count 7.9 10x3/uL (4.8-10.8)
== END 2022-10-07 11:00 | disposition home or self-care (01) | DRG 166 ==
LOC: ERS 21:40 → ERHOLD 09-28 04:22 → 2NO 09-28 19:09 → SURG A 10-02 17:58 → MSONC 10-05 20:36
PROVIDERS: ADMIT Internal Medicine; ATTEND Internal Medicine
PROC: 0BBF8ZX Excision of Right Lower Lung Lobe, Via Natural or Artificial Opening Endoscopic, Diagnostic (ICD-10-PCS; principal; 2022-09-28)
PROC: 0B9F8ZX Drainage of Right Lower Lung Lobe, Via Natural or Artificial Opening Endoscopic, Diagnostic (ICD-10-PCS; 2022-09-28)
PROC: 0JH63WZ Insertion of Totally Implantable Vascular Access Device into Chest Subcutaneous Tissue and Fascia, Percutaneous Approach (ICD-10-PCS; 2022-10-06)
PROC: 02HV33Z Insertion of Infusion Device into Superior Vena Cava, Percutaneous Approach (ICD-10-PCS; 2022-10-06)
PROC: B518ZZA Fluoroscopy of Superior Vena Cava, Guidance (ICD-10-PCS; 2022-10-06)
DX: C34.31 Malignant neoplasm of lower lobe, right bronchus or lung (principal); J18.9 Pneumonia, unspecified organism; J96.11 Chronic respiratory failure with hypoxia; J44.0 Chronic obstructive pulmonary disease with (acute) lower respiratory infection; C79.51 Secondary malignant neoplasm of bone; Z68.41 Body mass index [BMI] 40.0-44.9, adult; E87.1 Hypo-osmolality and hyponatremia; Z20.822 Contact with and (suspected) exposure to COVID-19; K21.9 Gastro-esophageal reflux disease without esophagitis; E78.5 Hyperlipidemia, unspecified; I10 Essential (primary) hypertension; G47.33 Obstructive sleep apnea (adult) (pediatric); F41.9 Anxiety disorder, unspecified; F32.A Depression, unspecified; E88.09 Other disorders of plasma-protein metabolism, not elsewhere classified; E87.6 Hypokalemia; E66.01 Morbid (severe) obesity due to excess calories; Z99.81 Dependence on supplemental oxygen; Z88.1 Allergy status to other antibiotic agents; Z88.2 Allergy status to sulfonamides; Z88.5 Allergy status to narcotic agent; Z91.041 Radiographic dye allergy status; Z88.8 Allergy status to other drugs, medicaments and biological substances; Z79.84 Long term (current) use of oral hypoglycemic drugs; Z79.4 Long term (current) use of insulin; Z79.899 Other long term (current) drug therapy; Z90.49 Acquired absence of other specified parts of digestive tract; Z90.710 Acquired absence of both cervix and uterus; Z99.3 Dependence on wheelchair
CPT/HCPCS: 36415; 36416; 70470; 71045; 71275; 74177; 80048; 80053; 81003; 81015; 82805; 83036; 83605; 83735; 83880; 84484; 85025; 87040; 87081; 87086; 87811; 88112; 88305; 88341; 88342; 93005; 93010; 94640; 96374; 96375; C1788; J0692; J1100; J1200; J1642; J1650; J1815; J1885; J1956; J2001; J2250; J2550; J2704; J2920; J3010; J3370; J3370-JW; J3490; J7050; J7512; J7611; J7620; Q0169; Q9967; S0028; U0002